=== PATIENT | male | born 1975 | race Caucasian/White ===

== ENCOUNTER 2025-07-22 06:48 | Observation (INO) ==
--- NOTE | 2025-07-22 07:26 | Emergency Department Note ---
History of Present Illness General Chief complaint: Nausea Stated complaint: NAUSEA,DIZZY,VOMITING Time Seen by Provider: 07/22/25 06:57 History of Present Illness Maximum Pain Intensity: 2 This is a 49-year-old male that presents to the emergency department via private vehicle with complaints of "epigastric abdominal pain, nausea, dizzy, vomiting". The patient states that since June 27, 2025 he has been feeling unwell/ill. He notes that he did see PCP and was started on antibiotic (first dose 6 AM on July 06) but this made him feel quite anxious and discontinued the medicine on July 11. Patient notes he was seen at an urgent care and started on 2 different antibiotics to include clarithromycin, amoxicillin as well as Carafate. He notes the Carafate nearly immediately alleviates his symptoms. However last evening began with nausea, vomiting and continuing to feel unwell. He does note a CT scan was performed of the abdomen/pelvis in the recent past which was overall negative. This was without contrast and a little over 2 weeks ago. Home Medications Medication Instructions Recorded Confirmed Type amoxicillin 500 mg capsule 1,000 mg PO BID 07/22/25 07/22/25 History clarithromycin 500 mg tablet 500 mg PO BID 07/22/25 07/22/25 History fenofibrate micronized 200 mg 200 mg PO QAM 07/22/25 07/22/25 History capsule irbesartan 75 mg tablet 75 mg PO QAM 07/22/25 07/22/25 History lorazepam 0.5 mg tablet 0.5 mg PO TID PRN Anxiety 07/22/25 07/22/25 History metformin 500 mg tablet,extended 1,000 mg PO QAM 07/22/25 07/22/25 History release 24 hr pantoprazole 40 mg tablet,delayed 40 mg PO DAILY 07/22/25 07/22/25 History release rosuvastatin 20 mg tablet 20 mg PO QAM 07/22/25 07/22/25 History sucralfate 1 gram tablet 1 g PO QID 07/22/25 07/22/25 History Allergies Allergy/AdvReac Type Severity Reaction Status Date / Time No Known Allergies Allergy Verified 07/22/25 12:41 Past Med/Surg History Problem List (Updated 07/22/25 @ 22:36 by Jose F Webb PA-C) Nausea (Acute) Abdominal pain (Acute) Tobacco use disorder Anxiety Dyslipidemia Diabetes mellitus type 2, controlled Hypertension Social History Smoking Status: Current every day smoker Tobacco Type: Cigarettes Cigarettes Per Day: 1 pack; Second Hand Exposure: No; Do You Dip or Chew Tobacco: No; Hx Alcohol Use: No Hx Substance Use: No Preferred Language: Beninese Communication Ability: Effective Society Reporter Required: No Beliefs That Will Affect Care: None Current Living Situation: Spouse and Family Feels Safe at Home: Yes Review of Systems A total of 10 systems reviewed and were otherwise negative Physical Exam Vital Signs Vital Signs - 24 hr 07/22/25 06:53 07/22/25 07:31 07/22/25 07:31 Temperature 36.4 C L Temperature Source Temporal Artery Scan Pulse Rate 89 75 Pulse Rate [Apical] 86 Pulse Rhythm Regular Pulse Rhythm [Apical] Regular Pulse Strength [Apical] Normal Respiratory Rate 18 12 14 Respiratory Effort / Characteristics Non-Labored Spontaneous Non-Labored Spontaneous Respiratory Depth Normal Normal Respiratory Pattern Regular Blood Pressure 139/94 Blood Pressure [Right Arm] 126/76 Blood Pressure Mean 109 Blood Pressure Mean [Right Arm] 92 Pulse Oximetry 96 94 96 Oxygen Delivery Method Room Air Room Air Room Air Sepsis Recent Fever Within 48 Hours No Sepsis New/Unexplained Change in Mental Status No Sepsis Action Taken by Nursing No Action Required 07/22/25 08:00 07/22/25 08:15 07/22/25 09:00 Temperature Temperature Source Pulse Rate 71 77 73 Pulse Rate [Apical] Pulse Rhythm Pulse Rhythm [Apical] Pulse Strength [Apical] Respiratory Rate 13 18 Respiratory Effort / Characteristics Respiratory Depth Respiratory Pattern Blood Pressure 130/80 140/86 Blood Pressure [Right Arm] Blood Pressure Mean 91 103 Blood Pressure Mean [Right Arm] Pulse Oximetry 94 94 Oxygen Delivery Method Room Air Room Air Sepsis Recent Fever Within 48 Hours Sepsis New/Unexplained Change in Mental Status Sepsis Action Taken by Nursing 07/22/25 10:00 07/22/25 10:00 07/22/25 11:00 Temperature Temperature Source Pulse Rate 72 76 73 Pulse Rate [Apical] Pulse Rhythm Pulse Rhythm [Apical] Pulse Strength [Apical] Respiratory Rate 21 24 18 Respiratory Effort / Characteristics Respiratory Depth Respiratory Pattern Blood Pressure 120/93 120/93 131/83 Blood Pressure [Right Arm] Blood Pressure Mean 98 98 98 Blood Pressure Mean [Right Arm] Pulse Oximetry 94 94 94 Oxygen Delivery Method Room Air Room Air Sepsis Recent Fever Within 48 Hours Sepsis New/Unexplained Change in Mental Status Sepsis Action Taken by Nursing VITAL SIGNS - Vital signs and nursing notes were reviewed. Stable and afebrile. GENERAL -49-year-old male appearing his stated age who is in no acute distress. Communicates well with provider and answers questions appropriately. SKIN - Without rashes. No meningeal or petechial rash. HEAD - NC/AT. EYES - PERRL with EOMI bilaterally. Sclera anicteric. EARS - No deformities of external structures noted on gross examination bilaterally. NOSE - Midline and without cyanosis. No epistaxis or purulent drainage noted. MOUTH/OROPHARYNX - Without perioral cyanosis. NECK - Neck with FROM. No nuchal rigidity. LUNGS - CTA CARDIAC - RRR ABDOMEN - Abdominal contour normal without pulsations or visible masses. BS normoactive all four quadrants. No tenderness, palpable masses, hepatosplenomegaly, or ascites noted. EXTREMITIES - No clubbing or peripheral cyanosis. +5/5 strength noted in UE/LE bilaterally. NEUROLOGIC - Cranial nerves II through XII grossly intact. PSYCH -alert, oriented and pleasant on exam. Course Administered Medications Amoxicillin (Amoxicillin 500 Mg Cap) 1,000 mg PO BID [facility]; Protocol Stop: 08/01/25 14:49 Last Admin: 07/22/25 16:25 Dose: 1,000 mg Documented By: MEERA Clarithromycin (Clarithromycin 500 Mg Tab) 500 mg PO BID SUSANA; Protocol Stop: 08/01/25 14:49 Last Admin: 07/22/25 16:25 Dose: 500 mg Documented By: MEERA Insulin Aspart (Insulin Aspart Per Unit Charge) 0 units SC ACHS [facility] Stop: 08/21/25 16:29 Last Admin: 07/22/25 20:35 Dose: Not Given Documented By: Admin: 07/22/25 17:38 Dose: Not Given Documented By: MEERA Nicotine (Nicotine 21 Mg/24 Hr Tdsy) 1 patch TD QAM [facility] Stop: 08/21/25 09:44 Last Admin: 07/22/25 10:08 Dose: 1 patch Documented By: CARRINGTON Pantoprazole Sodium (Pantoprazole 40 Mg Tab) 40 mg PO BID [facility] Stop: 08/21/25 20:59 Last Admin: 07/22/25 20:47 Dose: 40 mg Documented By: CHAUNCEY Sucralfate (Sucralfate 1 Gm/10 Ml Udc) 1 gm PO QID SUSANA Stop: 08/21/25 12:59 Last Admin: 07/22/25 20:47 Dose: 1 gm Documented By: Admin: 07/22/25 17:39 Dose: 1 gm Documented By: Admin: 07/22/25 13:45 Dose: 1 gm Documented By: RICKYD Discontinued Medications Sodium Chloride (Nss) 500 mls @ 500 mls/hr IV .Q1H ONE Stop: 07/22/25 08:12 Last Infusion: 07/22/25 10:08 Dose: Infused Documented By: Admin: 07/22/25 07:32 Dose: 500 mls/hr Documented By: CARRINGTON Famotidine (Pepcid 20mg Iv Push) 20 mg in 5 mls @ 2.5 mls/min IV NOW STA Stop: 07/22/25 07:14 Last Admin: 07/22/25 07:32 Dose: 2.5 mls/min Documented By: CARRINGTON Ioversol (Optiray 320 100ml) 94 ml IV ONCE ONE Stop: 07/22/25 08:40 Last Admin: 07/22/25 08:39 Dose: 94 ml Documented By: MEERA(2) Ondansetron HCl (Ondansetron Inj 2 Mg/Ml 2 Ml Vial) 4 mg IV NOW STA Stop: 07/22/25 07:14 Last Admin: 07/22/25 07:33 Dose: 4 mg Documented By: CARRINGTON Medical Decision Making Laboratory Data 07/22/25 07:30 07/22/25 07:30 Lab Results 07/22/25 07/22/25 Range/Units 07:30 08:15 WBC 11.78 H (4.8-10.8) K/ul RBC 5.24 (4.70-6.10) M/uL Hgb 16.4 (14.0-18.0) g/dL Hct 46.5 (42.0-52.0) % MCV 88.7 (80.0-100.0) fL MCH 31.3 (25.0-34.0) pg MCHC 35.3 (32.0-36.0) g/dL RDW Std Deviation 41.1 (36.4-46.3) fL RDW Coeff of Peyman 12.7 (11.5-14.5) % Plt Count 332 (130-400) K/uL MPV 11.0 (9.4-12.4) fL Immature Gran % (Auto) 0.4 % Neut % (Auto) 75.2 % Lymph % (Auto) 17.0 % [place] % (Auto) 5.3 % Eos % (Auto) 1.2 % Baso % (Auto) 0.9 % Neut # (Auto) 8.85 H (1.40-6.50) K/uL Lymph # (Auto) 2.00 (1.20-3.40) K/uL [place] # (Auto) 0.63 H (0.11-0.59) K/uL Eos # (Auto) 0.14 (0.00-0.50) K/uL Baso # (Auto) 0.11 (0.00-0.20) K/uL Immature Gran # (Auto) 0.05 (0.01-0.20) K/uL PT 11.2 (9.0-12.0) Seconds INR 1.1 (0.9-1.1) APTT 26 (21-31) Seconds PTT Ratio 1.0 Sodium 138 (136-145) mmol/L Potassium 3.9 (3.5-5.1) mmol/L Chloride 108 H (98-107) mmol/L Carbon Dioxide 22 (21-32) mmol/L Anion Gap 8 (3-11) BUN 21 (6-23) mg/dl Creatinine 0.83 (0.6-1.4) mg/dl Est Cr Clr Drug Dosing 122.0 ml/min eGFR 106.62 BUN/Creatinine Ratio 25.3 H (10-20) Glucose 106 H (70-99(Fasting)) mg/dl Lactate 2.0 (0.4-2.0) mmol/L Calcium 9.7 (8.6-10.3) mg/dl Magnesium 1.9 (1.7-2.4) mg/dl Total Bilirubin 0.7 (0.2-1.0) mg/dl AST 14 (13-39) U/L ALT 29 (7-52) U/L Alkaline Phosphatase 43 (34-104) U/L Troponin I High Sens 2.5 (0-20) pg/ml Total Protein 7.2 (6.0-8.3) gm/dl Albumin 4.5 (3.4-5.0) gm/dl Globulin 2.7 (2.5-4.0) gm/dl Albumin/Globulin Ratio 1.7 (0.9-2) Lipase 7 L (11-82) U/L Procalcitonin < 0.02 (0-0.5) ng/ml Urine Color Yellow Urine Appearance Clear (Clear) Urine pH 6.0 (4.5-7.5) Ur Specific [place] 1.012 (1.000-1.030) Urine Protein Negative (Negative) Urine Glucose (UA) Negative (Negative) Urine Ketones Negative (Negative) Urine Blood Negative (Negative) Urine Nitrite Negative (Negative) Urine Bilirubin Negative (Negative) Urine Urobilinogen Negative (Negative) Ur Leukocyte Esterase Negative (Negative) Urine Comment Imaging Data Radiologist's Impression: ADDENDUM Addendum: Upon further review, note is made of 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 Electronically signed by: Luis Angel Frausto M.D. 07/22/2025 9:[address] SCAN OF THE ABDOMEN AND PELVIS WITH IV CONTRAST CLINICAL HISTORY: Mid abdominal pain. Nausea. COMPARISON STUDY: None. TECHNIQUE: Following the IV administration of 94 cc of Optiray 320, CT scan of the abdomen and pelvis is performed from the lung bases to the proximal femora. Images are reviewed in the axial, sagittal, and coronal planes. IV contrast was administered without complication. A dose lowering technique was utilized adhering to the principles of ALARA. CT DOSE: 1389.19 mGy.cm FINDINGS: Visualized lung bases are unremarkable. There is no pneumatosis, free air or portal venous gas. There are no hepatic lesions. There is no biliary or pancreatic ductal dilatation. Spleen, adrenal glands, kidneys and pancreas are unremarkable. There is no hydronephrosis. The caliber and wall and large bowel are. The appendix is normal. There is no lymphadenopathy. Major vasculature is patent. 8 mm of anterolisthesis of L5 on S1 is due to bilateral L5 pars defects. IMPRESSION: 1. No acute process within the abdomen or pelvis. 2. Normal appendix. No bowel obstruction. No bowel wall thickening. ACT 112: Negative or not required by law. Electronically signed by: Luis Angel Frausto M.D. 07/22/2025 9:10 AM MDM Narrative Patient was seen and evaluated as above in room A11b. Review was performed of nursing notes and vital signs. No previous visits for review in the EMR at time of evaluation. After obtaining a thorough history and physical examination the above work up was performed. Patient presents with the above symptoms. He has a benign abdomen although as of late notes that he feels unwell, has nausea, and feels weak. He notes that Carafate does seem to help his symptoms some. Options of care were discussed with the patient. IV access was established. Labs were drawn. There is leukocytosis 11.78. No anemia. Coags normal. No evidence of kidney or liver failure. Troponin within normal range making ACS less likely. Lipase normal. Procalcitonin undetectable. Urinalysis does not suggest infection. BioFire panel returned negative. An EKG performed reveals normal sinus rhythm at a rate of 83 bpm. QTc 411. QRS 86. No ST elevation on this rhythm tracing. A CT scan was performed of the abdomen/pelvis and is as above. 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 This addendum finding is not felt to be contributory to the patient's presentation today. The patient has been placed on several outpatient medicines and despite this continues with worsening symptoms. I discussed options with the patient. Ultimately decision was made to proceed with further evaluation and management in the inpatient setting. It is felt that further evaluation and management inpatient setting is warranted. Case discussed with the hospitalist service. Please refer to further mentation regarding his stay. GCS: 15 In the evaluation and treatment of this patient the following differential diagnoses were entertained: Pancreatitis, Bowel obstruction, ascending cholangitis, gastritis, esophagitis, ACS, among others Impression & Plan Abdominal pain, Nausea Discharge Plan Visit Data Chief Complaint: Nausea Stated Complaint: NAUSEA,DIZZY,VOMITING ED Provider: Yobani Samaniego ED Midlevel Provider: Jose F Webb Discharge Problem: Abdominal pain, Nausea Patient Disposition: Admitted As Inpatient Condition: Good Discharge Instructions Interventions: ED Discharge Assessment Last Done: 07/22/25 12:36 Discharge Problem: Abdominal pain Qualifiers: Abdominal location: epigastric Qualified Code(s): R10.13 - Epigastric pain
[2025-07-22] MEDS: SODIUM CHLORIDE 0.9% 500 ML IV ONE (07:32)
[2025-07-22] MEDS: FAMOTIDINE 20MG IV PUSH 20 MG/5 ML SYR IV STA (07:32)
[2025-07-22] MEDS: ONDANSETRON INJ 2 MG/ML 2 ML VIAL IV STA (07:33)
[2025-07-22 07:51] LABS: Hematocrit (blood only) 46.5 % (42.0-52.0); Hemoglobin 16.4 g/dL (14.0-18.0); Immature Granulocytes # (auto) 0.05 K/uL (0.01-0.20); Immature Granulocytes % (auto) 0.4 %; Mean Corpuscular Hemoglobin 31.3 pg (25.0-34.0); Mean Corpuscular Volume 88.7 fL (80.0-100.0); Platelet Count 332 K/uL (130-400); RDW Standard Deviation 41.1 fL (36.4-46.3); Red Blood Count 5.24 M/uL (4.70-6.10); White Blood Count 11.78 K/ul (4.8-10.8)
[2025-07-22 08:11] LABS: Alanine Aminotransferase 29.0 U/L (7-52); Albumin Globulin Ratio 1.7 (0.9-2); Albumin Level 4.5 gm/dl (3.4-5.0); Alkaline Phosphatase 43.0 U/L (34-104); Anion Gap 8.0 (3-11); Bilirubin,Total 0.7 mg/dl (0.2-1.0); Blood Urea Nitrogen 21.0 mg/dl (6-23); Calcium 9.7 mg/dl (8.6-10.3); Carbon Dioxide 22.0 mmol/L (21-32); Chloride 108.0 mmol/L (98-107); Creatinine Clr Calc Pharmacy 122.0 ml/min; Globulin 2.7 gm/dl (2.5-4.0); Glucose 106.0 mg/dl (70-99(Fasting)); Lipase 7.0 U/L (11-82); Magnesium 1.9 mg/dl (1.7-2.4); Potassium 3.9 mmol/L (3.5-5.1); Sodium 138.0 mmol/L (136-145); Total Protein 7.2 gm/dl (6.0-8.3)
[2025-07-22 08:23] LABS: INR 1.1 (0.9-1.1); Partial Thromboplastin Time 26 Seconds (21-31); Prothrombin Time 11.2 Seconds (9.0-12.0)
[2025-07-22] MEDS: OPTIRAY 320 100ml IV ONE (08:39)
[2025-07-22 08:52] LABS: Appearance Urine Clear (Clear); Glucose Urine UA Negative (Negative)
--- NOTE | 2025-07-22 09:12 | CT Scan Report ---
CT SCAN OF THE ABDOMEN AND PELVIS WITH IV CONTRAST CLINICAL HISTORY: Mid abdominal pain. Nausea. COMPARISON STUDY: None. TECHNIQUE: Following the IV administration of 94 cc of Optiray 320, CT scan of the abdomen and pelvi s is performed from the lung bases to the proximal femora. Images are reviewed in the axial, sagittal , and coronal planes. IV contrast was administered without complication. A dose lowering technique wa s utilized adhering to the principles of ALARA. CT DOSE: 1389.19 mGy.cm FINDINGS: Visualized lung bases are unremarkable. There is no pneumatosis, free air or portal venous gas. There are no hepatic lesions. There is no biliary or pancreatic ductal dilatation. Spleen, adren al glands, kidneys and pancreas are unremarkable. There is no hydronephrosis. The caliber and wall an d large bowel are. The appendix is normal. There is no lymphadenopathy. Major vasculature is patent. 8 mm of anterolisthesis of L5 on S1 is due to bilateral L5 pars defects. IMPRESSION: 1. No acute process within the abdomen or pelvis. 2. Normal appendix. No bowel obstruction. No bowel wall thickening. ACT 112: Negative or not required by law. Electronically signed by: Luis Angel Frausto M.D. 07/22/2025 9:10 AM
[2025-07-22] MEDS: NICOTINE 21 MG/24 HR TDSY TD SCH (10:08)
--- NOTE | 2025-07-22 12:14 | History & Physical Report ---
Date of Service July 22, 2025 Assessment & Plan (1) Abdominal pain: (2) Hypertension: (3) Diabetes mellitus type 2, controlled: (4) Dyslipidemia: (5) Tobacco use disorder: (6) Anxiety: Plan Patient is a 49 year old M with a past medical history of hypertension, diabetes mellitus type II, dyslipidemia, anxiety, tobacco use disorder presenting with abdominal pain, dyspepsia, dry heaving. Symptoms began 06/2025 with intermittent abdominal pain, decreased appetite, and "hot" feelings" without measurable fever x 7 days and was started on Cipro by PCP on 07/06. Patient experienced increased anxiety symptoms with Cipro and was prescribed Ativan by outpatient provider. Symptoms did not improve. On 07/11, he went [facility], stopped Cipro and was started on Carafate. Symptoms did not improve off antibiotics, so he then went back to PCP and , and was prescribed Amoxicillin, Clarithromycin, PPI and Carafate for suspected H Pylori infection. Overnight, he experienced worsening dyspepsia and dry heaving. Feels abdominal pain is mostly central, around umbilicus, but also reporting burning sensation to epigastric area not associated with food intake. 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, measuring 1.1 cm * GI consult ordered and pending * Has been on PPI and Carafate outpatient-> will increase treatment regimen to Pantiprazole BID with Carafate QID management * Clear diet pending GI consult; poss NPO status * US liver and gallbladder ordered and pending #Hypertension * BP stable; continue home irbesartan and trend #Diabetes Mellitus Type II * Controlled with A1C 5.9% (02/2025) per outpatient records * Hold home metformin * SSI while inpatient with goal BSG 110-140; adjust as needed #Dyslipidemia * Per outpatient record, patient stopped cholesterol medication when sucralfate was added for concerns of drug interactions; patient reports taking statin currently * Suspect possible nonadherence to OP routine; Will check lipids in the morning * Continue home statin #Tobacco Use Disorder * Heavy tobacco user ~ smokes 1 pack/day * Nicotine patch ordered * discussed gastritis and reflux symptoms with chronic tobacco use; agreeable to nicotine patch while inpatient; will need smoking cessation info at discharge; suspect anxiety management with tobacco #Anxiety * Hold home ativan for now; no anxiety while in ED * Sleep issues when anxious; melatonin ordered for sleep as needed; may need ativan prn dose for inpatient admit DVT Ppx: SCDs Code status: Full PCP: Dr Hidalgo Dispo: Admit for observation; will need GI consult Patient seen in collaboration with Dr. Noble. Please see addendum.I spent a total of 60 minutes coordinating, documenting and providing care for this patient excluding time spent in the performance of separately billed services or time spent by another provider/QHP. History of Present Illness Primary Care Provider: Tessa Rojas MD Patient is a 49 year old M with a past medical history of hypertension, diabetes mellitus type II, dyslipidemia, anxiety, tobacco use disorder presenting with abdominal pain, dyspepsia, dry heaving. Symptoms began 06/2025 with intermittent abdominal pain, decreased appetite, and "hot" feelings" without measurable fever x 7 days and was started on Cipro by PCP on 07/06. Patient experienced increased anxiety symptoms with Cipro and was prescribed Ativan by outpatient provider. Symptoms did not improve. On 07/11, he went [facility], stopped Cipro and was started on Carafate. Symptoms did not improve off antibiotics, so he then went back to PCP and , and was prescribed Amoxicillin, Clarithromycin, PPI and Carafate for suspected H Pylori infection. Overnight, he experienced worsening dyspepsia and dry heaving. Feels abdominal pain is mostly central, around umbilicus, but also reporting burning sensation to epigastric area not associated with food intake. Denies fever, chills, weight loss, cognitive changes, vision/hearing changes, chest pain, SOB, swelling, difficulty breathing, urinary concerns, joint swelling/pain, ambulation difficulty, skin rashes, lesions, bleeding, bruising. Discussed with ED provider history of present illness and radiology findings from CT abdomen/pelvis. Reason for admission to investigate abdominal symptoms d/t minimal clinical response to outpatient treatment regimen, and consultation. In the emergency department, patient was hemodynamically stable with no evidence of infection or sepsis. Lab workup unremarkable. Slightly increased WBC with a normal Procalcitonin. LFTs normal. RUQ pain on exam. 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 Treatment in the ED consisted of IV fluid replacement with 500 ml NSS and famotidine. History obtained primarily from the patient and via hospitalization record. External chart review obtained from [facility]. Allergies Allergy/AdvReac Type Severity Reaction Status Date / Time No Known Allergies Allergy Verified 07/22/25 12:41 Home Medications Medication Instructions Recorded Confirmed Type amoxicillin 500 mg capsule 1,000 mg PO BID 07/22/25 07/22/25 History clarithromycin 500 mg tablet 500 mg PO BID 07/22/25 07/22/25 History fenofibrate micronized 200 mg 200 mg PO QAM 07/22/25 07/22/25 History capsule irbesartan 75 mg tablet 75 mg PO QAM 07/22/25 07/22/25 History lorazepam 0.5 mg tablet 0.5 mg PO TID PRN Anxiety 07/22/25 07/22/25 History metformin 500 mg tablet,extended 1,000 mg PO QAM 07/22/25 07/22/25 History release 24 hr pantoprazole 40 mg tablet,delayed 40 mg PO DAILY 07/22/25 07/22/25 History release rosuvastatin 20 mg tablet 20 mg PO QAM 07/22/25 07/22/25 History sucralfate 1 gram tablet 1 g PO QID 07/22/25 07/22/25 History Past Med/Surg History Problem List (Updated 07/22/25 @ 14:45 by HUMAIRA Pope) Abdominal pain Tobacco use disorder Anxiety Dyslipidemia Diabetes mellitus type 2, controlled Hypertension Social History Smoking Status: Current every day smoker Preferred Language: Uzbek Feels Safe at Home: Yes Review of Systems Review of Systems: All systems reviewed & are unremarkable except as noted in HPI & below Physical Exam Physical Exam: VITALS: Reviewed. WEIGHT/BMI reviewed. GEN: Healthy appearing, well-developed, NAD. PSYCH: Good Judgment. AOx3. Normal memory, mood, and affect. HEENT -Head: NC/AT; -Eyes: PERRL, EOMI. No discharge or redn ess; -Ears: External ears are normal. -Nose: Normal nares. -Mouth and throat: MMM. Normal gums, muc adolfo, palate,. Good dentition. NECK: Supple, with no masses. CV: S1, S2 without murmurs or extra beats, regular rhythm, no bruits, no swelling LUNGS: CTAB, no w/r/c. ABD: Soft, mildly distended, tender to RUQ, active bowel sounds, +belching on exam : N/A SKIN: Warm, well perfused. No skin rashes or abnormal lesions. MSK: No deformities, Normal gait. EXT: No clubbing, cyanosis, or edema. NEURO: Ambulating with no limitations. Normal muscle strength and tone. No focal deficits. Results & Data Results & Data Vital Signs (Past 12 Hours) Vital Signs Temp Pulse Pulse Resp BP BP Pulse Ox 07/22/25 10:00 72 21 120/93 94 07/22/25 09:00 73 18 140/86 94 07/22/25 08:15 77 07/22/25 08:00 71 13 130/80 94 07/22/25 07:31 75 14 96 07/22/25 07:31 86 12 126/76 94 07/22/25 06:53 36.4 C L 89 18 139/94 96 O2 Del Method 07/22/25 10:00 Room Air 07/22/25 09:00 Room Air 07/22/25 08:15 07/22/25 08:00 Room Air 07/22/25 07:31 Room Air 07/22/25 07:31 Room Air 07/22/25 06:53 Room Air Laboratory Results Short CBC 07/22/25 Range/Units 07:30 WBC 11.78 H (4.8-10.8) K/ul Hgb 16.4 (14.0-18.0) g/dL Hct 46.5 (42.0-52.0) % Plt Count 332 (130-400) K/uL BMP 07/22/25 07:30 Sodium 138 Potassium 3.9 Chloride 108 H Carbon Dioxide 22 BUN 21 Creatinine 0.83 Glucose 106 H Calcium 9.7 Liver Function 07/22/25 Range/Units 07:30 Total Bilirubin 0.7 (0.2-1.0) mg/dl AST 14 (13-39) U/L ALT 29 (7-52) U/L Alkaline Phosphatase 43 (34-104) U/L Albumin 4.5 (3.4-5.0) gm/dl Urine 07/22/25 Range/Units 08:15 Urine Color Yellow Urine Appearance Clear (Clear) Urine pH 6.0 (4.5-7.5) Ur Specific [place] 1.012 (1.000-1.030) Urine Protein Negative (Negative) Urine Glucose (UA) Negative (Negative) Diagnostic Findings Abdomen/Pelvis CT 07/22/25 07:13 CT SCAN OF THE ABDOMEN AND PELVIS WITH IV CONTRAST CLINICAL HISTORY: Mid abdominal pain. Nausea. COMPARISON STUDY: None. TECHNIQUE: Following the IV administration of 94 cc of Optiray 320, CT scan of the abdomen and pelvis is performed from the lung bases to the proximal femora. Images are reviewed in the axial, sagittal, and coronal planes. IV contrast was administered without complication. A dose lowering technique was utilized adhering to the principles of ALARA. CT DOSE: 1389.19 mGy.cm FINDINGS: Visualized lung bases are unremarkable. There is no pneumatosis, free air or portal venous gas. There are no hepatic lesions. There is no biliary or pancreatic ductal dilatation. Spleen, adrenal glands, kidneys and pancreas are unremarkable. There is no hydronephrosis. The caliber and wall and large bowel are. The appendix is normal. There is no lymphadenopathy. Major vasculature is patent. 8 mm of anterolisthesis of L5 on S1 is due to bilateral L5 pars defects. IMPRESSION: 1. No acute process within the abdomen or pelvis. 2. Normal appendix. No bowel obstruction. No bowel wall thickening. ACT 112: Negative or not required by law. Electronically signed by: Luis Angel Frausto M.D. 07/22/2025 9:10 AM Code Status & VTE Plan VTE Prophylaxis Plan VTE Prophylaxis will be ordered: Yes Supervising Physician Co-Signing Physician Notes 49-year-old gentleman with PMH of HTN, T2DM, HLD, anxiety, tobacco use disorder [currently smokes 1 packs a day] presents with abdominal pain/burning sensation/discomfort along the central upper to mid region. Patient reports feeling bloated and not feeling hungry, reports nausea and reflux intermittently, had vomiting x 2 since last evening. Patient does report he gets some improvement with Carafate. He reports that he has been taking his H. pylori therapy [clarithromycin, amoxicillin, PPI, Carafate] for 7 days now but did not take today morning dose as he was coming to the hospital. Patient denies febrile illness/sore throat/chest pain. Patient also reports right upper quadrant pain and discomfort intermittently. Labs reviewed, fairly WNL. CTAP with no acute findings, concern for Common hepatic artery fusiform dilatation around 1.1 cm. GI consult, acid peptic disease not improving as expected, likely need a scope. Vascular surgery consult given right-sided belly pain and incidental finding of hepatic artery fusiform dilatation. Patient made aware of this finding and advised to follow-up with PCP/vascular surgery as an outpatient for long-term monitoring. Will get US liver and gallbladder. On exam: Room air, no BLE edema, heart/lung examination fairly WNL, periumbilical and epigastric mild tenderness noted. Rest of the examination as above. Total time spent independently: 24 minutes I have seen and examined the patient and have discussed the case with the provider above. I agree with the assessment and plan as stated.
[2025-07-22] MEDS ORDERED: DEXTROSE 50% 50 ML SYRINGE IV PRN (12:22)
[2025-07-22] MEDS ORDERED: GLUCOSE 40% GEL 15 GM TUBE PO PRN (12:22)
[2025-07-22] MEDS ORDERED: GLUCOSE 10 TAB/TUBE PO PRN (12:22)
[2025-07-22] MEDS ORDERED: CARBOHYDRATES FOR HYPOGLYCEMIA PO PRN (12:22)
[2025-07-22] MEDS ORDERED: GLUCAGON FOR INJ 1 MG VIAL SQ PRN (12:22)
[2025-07-22] MEDS ORDERED: ACETAMINOPHEN 325 MG TAB PO PRN (12:36)
[2025-07-22] MEDS ORDERED: ALUMINUM/MAGNESIUM SUSP 30 ML UDC PO PRN (12:36)
[2025-07-22] MEDS: SUCRALFATE 1 GM/10 ML UDC PO SCH (13:45)
--- NOTE | 2025-07-22 13:49 | Gastrointestinal Consultation ---
Date of Consultation July 22, 2025 Assessment & Plan (1) Abdominal pain: Unclear etiology. Non-toxic appearing patient with intermittent symptoms. Notes coworker with similar symptoms. LFTs normal. Mild elevation of WBC count. Primary team ordered RUQ US. Protonix 40 mg BID. Stool PCR. Seems most appropriate for outpatient work-up with EGD at this time. Would not continue H pylori treatment when he has not been formally diagnosed with this. Will discuss with attending payroll services analyst. Refer to attending physician statement for any further changes/additions to the plan of care. Supervising Physician Co-Signing Physician Notes I personally saw and examined the patient. I have reviewed the chart and agree with the documentation provided by the COATING TECHNICIAN including discussion about the assessment, treatment and plan. Briefly, 49 yo male with unclear story regarding ongoing abdominal discomfort. He notes bloating that began in June and saw his PCP. He notes he was given Cipro after a CT scan did not yield find ings. He stopped this med because he couldn't tolerate the side effects. He then saw urgent care. He was given Carafate. He was then seen by another primary care provider and reportedly he has no formal diagnosis of H pylori despite H pylori treatment with Clarithromycin and Amoxicillin. He was taking Protonix as well. He presented to the ED due to persistence of his symptoms of intermittent abdom inal pain, decreased appetite and "feeling hot." His symptoms are most consistent with H. pylori treatment. Unfortunately, he was never officially diagnosed with H. pylori so we do not know what we are treating. I do suspect he has some gastritis. At this point I would just stop all antibiotics continue PPI and supportive care he can be a 23-hour admission and advance his diet slowly. He should follow-up outpatient with GI to get an EGD to make sure he does not have H. pylori and he does not have gastritis. GI has no further recommendations we will sign off please call us back with [employer]. History of Present Illness Reason for Consultation: "Ongoing Gastritis, on HPyloir tx, cholecystitis" Attending Physician: Margaret Noble MD History of Present Illness Patient is a 49 yo male with unclear story regarding ongoing abdominal discomfort. He notes bloating that began in June and saw his PCP. He notes he was given Cipro after a CT scan did not yield findings. He stopped this med because he couldn't tolerate the side effects. He then saw urgent care. He was given Carafate. He was then seen by another primary care provider and reportedly he has no formal diagnosis of H pylori despite H pylori treatment with Clarithromycin and Amoxicillin. He was taking Protonix as well. He presented to the ED due to persistence of his symptoms of intermittent abdominal pain, decreased appetite and "feeling hot." No fevers. Pain not associated with food intake. In the ED, CT without acute GI abnormalities. LFTs normal. Normal BUN/Cr. Procalcitonin normal. No biliary concerns on CT scan here today. WBC count 11,780. Lipase normal. Troponin normal. He notes a coworker has been coming to work with the same symptoms. Allergies Allergy/AdvReac Type Severity Reaction Status Date / Time No Known Allergies Allergy Verified 07/22/25 12:41 Home Medications Medication Instructions Recorded Confirmed Type amoxicillin 500 mg capsule 1,000 mg PO BID 07/22/25 07/22/25 History clarithromycin 500 mg tablet 500 mg PO BID 07/22/25 07/22/25 History fenofibrate micronized 200 mg 200 mg PO QAM 07/22/25 07/22/25 History capsule irbesartan 75 mg tablet 75 mg PO QAM 07/22/25 07/22/25 History lorazepam 0.5 mg tablet 0.5 mg PO TID PRN Anxiety 07/22/25 07/22/25 History metformin 500 mg tablet,extended 1,000 mg PO QAM 07/22/25 07/22/25 History release 24 hr pantoprazole 40 mg tablet,delayed 40 mg PO DAILY 07/22/25 07/22/25 History release rosuvastatin 20 mg tablet 20 mg PO QAM 07/22/25 07/22/25 History sucralfate 1 gram tablet 1 g PO QID 07/22/25 07/22/25 History Patient History Social History Smoking Status: Current every day smoker Tobacco Type: Cigarettes Cigarettes Per Day: 1 pack; Second Hand Exposure: No; Do You Dip or Chew Tobacco: No; Tobacco Cessation Education Requested by Patient: No Hx Alcohol Use: No Hx Substance Use: No Preferred Language: Citizen Of [place] Communication Ability: Effective Systems Mechanic Required: No Beliefs That Will Affect Care: None Current Living Situation: Spouse and Family Feels Safe at Home: Yes Safety Concerns: Feels Safe At This Time Review of Systems Constitutional: feeling "hot" Gastrointestinal: + abdominal pain; no nausea, no vomiting , no coffee ground emesis, no hematemesis, no diarrhea/loose stools, no blood in stools and no melena Physical Exam Constitutional: well developed Respiratory: normal respiratory effort Cardiovascular: Rate/Rhythm: regular rate Gastrointestinal (Abdomen): normal bowel sounds, soft, nontender, no hepa tosplenomegaly Results & Data Vital Signs (Past 12 Hours) Vital Signs Temp Pulse Pulse Resp BP BP Pulse Ox 07/22/25 13:41 76 18 146/85 H 07/22/25 13:00 87 16 138/92 92 07/22/25 12:17 76 07/22/25 12:00 83 14 139/87 93 07/22/25 11:00 73 18 131/83 94 07/22/25 10:00 76 24 120/93 94 07/22/25 10:00 72 21 120/93 94 07/22/25 09:00 73 18 140/86 94 07/22/25 08:15 77 07/22/25 08:00 71 13 130/80 94 07/22/25 07:31 75 14 96 07/22/25 07:31 86 12 126/76 94 07/22/25 06:53 36.4 C L 89 18 139/94 96 O2 Del Method 07/22/25 13:41 07/22/25 13:00 07/22/25 12:17 07/22/25 12:00 Room Air 07/22/25 11:00 07/22/25 10:00 Room Air 07/22/25 10:00 Room Air 07/22/25 09:00 Room Air 07/22/25 08:15 07/22/25 08:00 Room Air 07/22/25 07:31 Room Air 07/22/25 07:31 Room Air 07/22/25 06:53 Room Air PG Care Time/CCT Total # of Minutes Spent Total Time Spent with Patient: Total time spent is greater than 50% in coordination of care (as documented) at patient's floor/unit and/or counseling patient: Coding Level of Care Code 00327 IN/OBS CONSULT LVL 4,60M Diagnoses Abdominal pain R10.9
[2025-07-22] MEDS: AMOXICILLIN 500 MG CAP PO SCH (16:25)
[2025-07-22] MEDS: CLARITHROMYCIN 500 MG TAB PO SCH (16:25)
[2025-07-22] MEDS: INSULIN ASPART PER UNIT CHARGE SC SCH (17:38)
[2025-07-22 19:04] LABS: Adenovirus F 40/41 PCR Not Detected (NotDetected); Campylobacter PCR Not Detected (NotDetected); Enteroaggregative E.coli(EAEC) Not Detected (NotDetected); Shiga-like Toxin E.coli (STEC) Not Detected (NotDetected); Vibrio species PCR Not Detected (NotDetected)
[2025-07-22] MEDS ORDERED: AMOXICILLIN 500 MG CAP PO SCH (21:00)
[2025-07-22] MEDS ORDERED: CLARITHROMYCIN 500 MG TAB PO SCH (21:00)
--- NOTE | 2025-07-23 03:14 | Ultrasound Report ---
Exam(s): US GALLBLADDER EXAM: US Abdomen Limited, Right Upper Quadrant CLINICAL HISTORY: RUQ pain. TECHNIQUE: Real-time ultrasound of the right upper quadrant with image documentation. COMPARISON: CT abdomen 07/22/2025. FINDINGS: Liver: 17.3 cm in length. Mildly echogenic/fatty. 1.3 x 0.5 x 0.5 mm slightly ill-defined echogenic lesion in the anterior aspect of the right lobe of the liver. No intrahepatic bile duct dilation. Hepatopetal flow in the main portal vein. Gallbladder: Probable slight gallbladder sludge. No gallstones, wall thickening or sonographic Calderon's sign. Common bile duct: 4 mm. No stones. No dilation. Pancreas: Unremarkable as visualized. Right kidney: Unremarkable. No stones. No solid mass. No hydronephrosis. IMPRESSION: Small amount of gallbladder sludge. No evidence for acute cholecystitis or biliary obstruction. Mild fatty infiltration of the liver. Small echogenic lesion in the anterior aspect of the right lobe of the liver, not visualized on CT. Considerations a small hemangioma or vascular lesion. Otherwise negative. Electronically signed by: James Tracey M.D. 07/23/25 03:13 AM
[2025-07-23] MEDS: ONDANSETRON INJ 2 MG/ML 2 ML VIAL IV PRN (06:38)
[2025-07-23 06:56] LABS: Hematocrit (blood only) 46.9 % (42.0-52.0); Hemoglobin 15.9 g/dL (14.0-18.0); Mean Corpuscular Hemoglobin 30.5 pg (25.0-34.0); Mean Corpuscular Volume 90.0 fL (80.0-100.0); Platelet Count 319 K/uL (130-400); RDW Standard Deviation 41.3 fL (36.4-46.3); Red Blood Count 5.21 M/uL (4.70-6.10); White Blood Count 9.70 K/ul (4.8-10.8)
[2025-07-23 07:23] VITALS: BP 120/76; PULSE 64; RESP 18; TEMP 97; O2SAT 97
[2025-07-23 07:33] LABS: Anion Gap 9.0 (3-11); Blood Urea Nitrogen 14.0 mg/dl (6-23); Calcium 9.4 mg/dl (8.6-10.3); Carbon Dioxide 23.0 mmol/L (21-32); Chloride 106.0 mmol/L (98-107); Cholesterol 99.0 mg/dl (0-200); Creatinine Clr Calc Pharmacy 131.6 ml/min; Glucose 95.0 mg/dl (70-99(Fasting)); HDL Cholesterol 23.0 mg/dl; Potassium 4.0 mmol/L (3.5-5.1); Sodium 138.0 mmol/L (136-145); Triglycerides 187.0 mg/dl (0-150)
--- NOTE | 2025-07-23 08:12 | Electrocardiogram Report ---
Test Reason : Blood Pressure : */* mmHG Vent. Rate : 83 BPM Atrial Rate : 83 BPM P-R Int : 144 ms QRS Dur : 86 ms QT Int : 350 ms P-R-T Axes : 27 117 0 degrees QTcB Int : 411 ms Normal sinus rhythm Right axis deviation Consider Right ventricular hypertrophy Abnormal ECG No previous ECGs available Confirmed by Asim Hernandez ([id number]) on 07/23/2025 8:12:48 AM Referred By: REFERRED SELF Confirmed By: Asim Hernandez
--- NOTE | 2025-07-23 08:22 | Vascular Surgery Consultation ---
Date of Consultation July 23, 2025 Assessment & Plan (1) Abdominal pain: Incidental finding of dilation of common hepatic artery. I do not believe this is related to his abdominal pain and it does not require any intervention or further evaluation from my perspective. Abdominal location: epigastric Qualified Code(s): R10.13 - Epigastric pain History of Present Illness Attending Physician: Darren Balbuena MD History of Present Illness Asked to evaluate this 49yo male with one month of abdominal pain and CT finding of mild dilation of common hepatic artery seen on CT scan. Pain begain about a month ago and was rather sudden in onset with associated nausea. Pain migrates throughout the abdomen - RUQ, LUQ and occasionally in the lower quadrants. Has an uncle with what sounds like an abdominal aortic aneurysm (he pointed to the belly) but no further details. No other family history of aneurysms. Allergies Allergy/AdvReac Type Severity Reaction Status Date / Time No Known Allergies Allergy Verified 07/22/25 12:41 Home Medications Medication Instructions Recorded Confirmed Type amoxicillin 500 mg capsule 1,000 mg PO BID 07/22/25 07/22/25 History clarithromycin 500 mg tablet 500 mg PO BID 07/22/25 07/22/25 History fenofibrate micronized 200 mg 200 mg PO QAM 07/22/25 07/22/25 History capsule irbesartan 75 mg tablet 75 mg PO QAM 07/22/25 07/22/25 History lorazepam 0.5 mg tablet 0.5 mg PO TID PRN Anxiety 07/22/25 07/22/25 History metformin 500 mg tablet,extended 1,000 mg PO QAM 07/22/25 07/22/25 History release 24 hr pantoprazole 40 mg tablet,delayed 40 mg PO DAILY 07/22/25 07/22/25 History release rosuvastatin 20 mg tablet 20 mg PO QAM 07/22/25 07/22/25 History sucralfate 1 gram tablet 1 g PO QID 07/22/25 07/22/25 History Patient History Social History Smoking Status: Current every day smoker Tobacco Type: Cigarettes Cigarettes Per Day: 1 pack; Second Hand Exposure: No; Do You Dip or Chew Tobacco: No; Hx Alcohol Use: No Hx Substance Use: No Preferred Language: Azeri Communication Ability: Effective Receiving Checker Required: No Beliefs That Will Affect Care: None Current Living Situation: Spouse and Family Feels Safe at Home: Yes Physical Exam Physical Exam: Awake and alert. Would like to eat something more than liquids but also says he isn't hungry (and hasn't been since this started in June). Abdomen is soft with vague nonspecific tenderness in the right and left upper quadrants. No rebound or guarding. Palpable pulses in the feet bilaterally. Results & Data Vital Signs (Past 12 Hours) Vital Signs Temp Pulse Resp BP Pulse Ox O2 Del Method 07/23/25 07:20 36.1 C L 64 18 120/76 97 Room Air 07/22/25 23:18 36.4 C L 74 16 137/90 96 Room Air Diagnostic Findings CT scan reviewed. There is mild (1.1cm) dilation of the common hepatic artery near its origin. No surrounding inflammation. No other dilations/aneurysms identified in the aorta/iliac arteries/other visceral arteries PG Care Time/CCT Total # of Minutes Spent Total Time Spent with Patient: Total time spent is greater than 50% in coordination of care (as documented) at patient's floor/unit and/or counseling patient: Coding Level of Care Code 93505 IN/OBS CONSULT LVL 3,45M Diagnoses Abdominal pain R10.13 Abdominal location: epigastric
[2025-07-23] MEDS: FENOFIBRATE NANOCRYSTALLIZED 48 MG TABLET PO SCH (08:54)
[2025-07-23] MEDS: LOSARTAN POTASSIUM 25 MG TAB PO SCH (08:55)
[2025-07-23] MEDS: REMOVE NICODERM PATCH SCH (08:55)
[2025-07-23] MEDS: ROSUVASTATIN CALCIUM 20 MG TAB PO SCH (08:55)
[2025-07-23] MEDS: LORazepam 0.5 MG TAB PO PRN (10:42)
[2025-07-23 12:04] LABS: Cdiff Toxin B Gene (2yr or >) Negative Cdiff Gene (Neg)
[2025-07-23] MEDS ORDERED: LOPERAMIDE HCL 2 MG CAP PO PRN (12:11)
--- NOTE | 2025-07-23 12:37 | Hospitalist Progress Note ---
Date of Service July 23, 2025 Assessment & Plan (1) Abdominal pain: (2) Hypertension: (3) Diabetes mellitus type 2, controlled: (4) Dyslipidemia: (5) Tobacco use disorder: (6) Anxiety: Plan Patient is a 49 year old M with a past medical history of hypertension, diabetes mellitus type II, dyslipidemia, anxiety, tobacco use disorder presenting with abdominal pain, dyspepsia, dry heaving. Symptoms began 06/2025 with intermittent abdominal pain, decreased appetite, and "hot" feelings" without measurable fever x 7 days and was started on Cipro by PCP on 07/06. Patient experienced increased anxiety symptoms with Cipro and was prescribed Ativan by outpatient provider. Symptoms did not improve. On 07/11, he went [facility], stopped Cipro and was started on Carafate. Symptoms did not improve off antibiotics, so he then went back to PCP and , and was prescribed Amoxicillin, Clarithromycin, PPI and Carafate for suspected H Pylori infection. Overnight, he experienced worsening dyspepsia and dry heaving. Feels abdominal pain is mostly central, around umbilicus, but also reporting burning sensation to epigastric area not associated with food intake. Abdominal pain likely secondary to gastritis Diarrhea thought to be secondary to antibiotics Dilatation of hepatic artery: Incidental finding on ultrasound--no intervention needed per vascular surgery Patient was started on antibiotics outpatient for suspected H. pylori with no formal confirmation --CT ABD:No acute process within the abdomen or pelvis. Normal appendix. No bowel obstruction. No bowel wall thickening. --Gall Bladder USD:Small amount of gallbladder sludge. No evidence for acute cholecystitis or biliary obstruction.Mild fatty infiltration of the liver. Small echogenic lesion in the anterior aspect of the right lobe of the liver, not visualized on CT. Considerations a small hemangioma or vascular lesion. Otherwise negative. -- Normal LFTs --Lipase 7 --Stool PCR, stool for C. difficile negative Appreciate GI, vascular surgery input Advance diet as tolerated IV fluids as needed Continue Protonix, Carafate Discontinued antibiotics as recommended by GI Will need outpatient EGD for further evaluation Hypertension continue home irbesartan Monitor blood pressure Diabetes Mellitus Type II Controlled with A1C 5.9% (02/2025) per outpatient records Hold home metformin SSI while inpatient Monitor blood glucose levels Dyslipidemia On statin Tobacco Use Disorder Heavy tobacco user ~ smokes 1 pack/day Nicotine patch ordered Director Emergency Department to quit smoking Anxiety Ativan as needed DVT Px: SCDs Encouraged to ambulate Code status: Full Code Admission and Anticipated Discharge Date Admission Date: July 22, 2025 Subjective Patient is seen and examined at bedside States having transient nausea this morning which resolved Also reports generalized abdominal discomfort, bloating and flatus Had loose BMs today Denies any chest pain, dyspnea Prefers to be discharged home today No other complaints Review of Systems Review of Systems: All systems reviewed & are unremarkable except as noted in Subjective Physical Exam Physical Exam: Physical Exam: Vitals signs as noted above General Appearance:Moderately built and nourished, no apparent distress Head: normocephalic, Atraumatic Eyes: normal inspection, EOMI Neck: supple, Trachea midline Respiratory/Chest: Normal breath sounds, CTA, No accessory muscle use Cardiovascular: S1, S2, No murmur Abdomen/GI:Soft, mild general tender, Bowel sounds present, no guarding or rigidity Extremities/Musculoskeletal:normal inspection, no edema Neurologic/Psych:AAOX3, grossly no focal neurological deficits Skin: normal color, warm Results & Data Results & Data Vital Signs (Past 12 Hours) Vital Signs Temp Pulse Resp BP Pulse Ox O2 Del Method 07/23/25 07:20 36.1 C L 64 18 120/76 97 Room Air Laboratory Results Short CBC 07/23/25 Range/Units 06:41 WBC 9.70 (4.8-10.8) K/ul Hgb 15.9 (14.0-18.0) g/dL Hct 46.9 (42.0-52.0) % Plt Count 319 (130-400) K/uL BMP 07/23/25 06:41 Sodium 138 Potassium 4.0 Chloride 106 Carbon Dioxide 23 BUN 14 Creatinine 0.77 Glucose 95 Calcium 9.4 (1) Abdominal pain Abdominal location: epigastric Qualified Code(s): R10.13 - Epigastric pain
[2025-07-23] MEDS: ADVANCED PROBIOTIC 625 MG CAPSULE PO SCH (12:43)
--- NOTE | 2025-07-23 13:01 | Discharge Summary ---
Date of Service July 23, 2025 Admission HPI Per Admitting Provider Patient is a 49 year old M with a past medical history of hypertension, diabetes mellitus type II, dyslipidemia, anxiety, tobacco use disorder presenting with abdominal pain, dyspepsia, dry heaving. Symptoms began 06/2025 with intermittent abdominal pain, decreased appetite, and "hot" feelings" without measurable fever x 7 days and was started on Cipro by PCP on 07/06. Patient experienced increased anxiety symptoms with Cipro and was prescribed Ativan by outpatient provider. Symptoms did not improve. On 07/11, he went [facility], stopped Cipro and was started on Carafate. Symptoms did not improve off antibiotics, so he then went back to PCP and , and was prescribed Amoxicillin, Clarithromycin, PPI and Carafate for suspected H Pylori infection. Overnight, he experienced worsening dyspepsia and dry heaving. Feels abdominal pain is mostly central, around umbilicus, but also reporting burning sensation to epigastric area not associated with food intake. Denies fever, chills, weight loss, cognitive changes, vision/hearing changes, chest pain, SOB, swelling, difficulty breathing, urinary concerns, joint swelling/pain, ambulation difficulty, skin rashes, lesions, bleeding, bruising. Discussed with ED provider history of present illness and radiology findings from CT abdomen/pelvis. Reason for admission to investigate abdominal symptoms d/t minimal clinical response to outpatient treatment regimen, and consultation. In the emergency department, patient was hemodynamically stable with no evidence of infection or sepsis. Lab workup unremarkable. Slightly increased WBC with a normal Procalcitonin. LFTs normal. RUQ pain on exam. 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 Treatment in the ED consisted of IV fluid replacement with 500 ml NSS and famotidine. History obtained primarily from the patient and via hospitalization record. External chart review obtained from [facility]. Admission Exam Per Admitting Provider VITALS: Reviewed. WEIGHT/BMI reviewed. GEN: Healthy appearing, well-developed, NAD. PSYCH: Good Judgment. AOx3. Normal memory, mood, and affect. HEENT -Head: NC/AT; -Eyes: PERRL, EOMI. No discharge or redness; -Ears: External ears are normal. -Nose: Normal nares. -Mouth and throat: MMM. Normal gums, mucosa, palate,. Good dentition. NECK: Supple, with no masses. CV: S1, S2 without murmurs or extra beats, regular rhythm, no bruits, no swelling LUNGS: CTAB, no w/r/c. ABD: Soft, mildly distended, tender to RUQ, active bowel sounds, +belching on exam : N/A SKIN: Warm, well perfused. No skin rashes or abnormal lesions. MSK: No deformities, Normal gait. EXT: No clubbing, cyanosis, or edema. NEURO: Ambulating with no limitations. Normal muscle strength and tone. No focal deficits. Principal Diagnosis Abdominal pain/Suspected Gastritis Diarrhea Dilatation of hepatic artery Discharge Data Allergies Allergy/AdvReac Type Severity Reaction Status Date / Time No Known Allergies Allergy Verified 07/22/25 12:41 Consultations 07/22/25 11:12 ED Decision to Admit Stat 07/22/25 11:53 Consult Gastroenterology Routine 07/22/25 14:54 Consult Vascular Surgery Routine Procedures Performed Laboratory Results WBC 9.70 K/ul (4.8-10.8) 07/23/25 06:41 RBC 5.21 M/uL (4.70-6.10) 07/23/25 06:41 Hgb 15.9 g/dL (14.0-18.0) 07/23/25 06:41 Hct 46.9 % (42.0-52.0) 07/23/25 06:41 MCV 90.0 fL (80.0-100.0) 07/23/25 06:41 MCH 30.5 pg (25.0-34.0) 07/23/25 06:41 MCHC 33.9 g/dL (32.0-36.0) 07/23/25 06:41 RDW Std Deviation 41.3 fL (36.4-46.3) 07/23/25 06:41 RDW Coeff of Peyman 12.5 % (11.5-14.5) 07/23/25 06:41 Plt Count 319 K/uL (130-400) 07/23/25 06:41 MPV 10.7 fL (9.4-12.4) 07/23/25 06:41 Immature Gran % (Auto) 0.4 % 07/22/25 07:30 Neut % (Auto) 75.2 % 07/22/25 07:30 Lymph % (Auto) 17.0 % 07/22/25 07:30 [place] % (Auto) 5.3 % 07/22/25 07:30 Eos % (Auto) 1.2 % 07/22/25 07:30 Baso % (Auto) 0.9 % 07/22/25 07:30 Neut # (Auto) 8.85 K/uL (1.40-6.50) H 07/22/25 07:30 Lymph # (Auto) 2.00 K/uL (1.20-3.40) 07/22/25 07:30 [place] # (Auto) 0.63 K/uL (0.11-0.59) H 07/22/25 07:30 Eos # (Auto) 0.14 K/uL (0.00-0.50) 07/22/25 07:30 Baso # (Auto) 0.11 K/uL (0.00-0.20) 07/22/25 07:30 Immature Gran # (Auto) 0.05 K/uL (0.01-0.20) 07/22/25 07:30 PT 11.2 Seconds (9.0-12.0) 07/22/25 07:30 INR 1.1 (0.9-1.1) 07/22/25 07:30 APTT 26 Seconds (21-31) 07/22/25 07:30 PTT Ratio 1.0 07/22/25 07:30 Sodium 138 mmol/L (136-145) 07/23/25 06:41 Potassium 4.0 mmol/L (3.5-5.1) 07/23/25 06:41 Chloride 106 mmol/L (98-107) 07/23/25 06:41 Carbon Dioxide 23 mmol/L (21-32) 07/23/25 06:41 Anion Gap 9 (3-11) 07/23/25 06:41 BUN 14 mg/dl (6-23) 07/23/25 06:41 Creatinine 0.77 mg/dl (0.6-1.4) 07/23/25 06:41 Est Cr Clr Drug Dosing 131.6 ml/min 07/23/25 06:41 eGFR 109.07 07/23/25 06:41 BUN/Creatinine Ratio 18.2 (10-20) 07/23/25 06:41 Glucose 95 mg/dl (70-99(Fasting)) 07/23/25 06:41 POC Glucose 119 mg/dl (70-99) H 07/23/25 11:20 Lactate 2.0 mmol/L (0.4-2.0) 07/22/25 07:30 Calcium 9.4 mg/dl (8.6-10.3) 07/23/25 06:41 Magnesium 1.9 mg/dl (1.7-2.4) 07/22/25 07:30 Total Bilirubin 0.7 mg/dl (0.2-1.0) 07/22/25 07:30 AST 14 U/L (13-39) 07/22/25 07:30 ALT 29 U/L (7-52) 07/22/25 07:30 Alkaline Phosphatase 43 U/L (34-104) 07/22/25 07:30 Troponin I High Sens 2.5 pg/ml (0-20) 07/22/25 07:30 Total Protein 7.2 gm/dl (6.0-8.3) 07/22/25 07:30 Albumin 4.5 gm/dl (3.4-5.0) 07/22/25 07:30 Globulin 2.7 gm/dl (2.5-4.0) 07/22/25 07:30 Albumin/Globulin Ratio 1.7 (0.9-2) 07/22/25 07:30 Triglycerides 187 mg/dl (0-150) H 07/23/25 06:41 Cholesterol 99 mg/dl (0-200) 07/23/25 06:41 LDL Cholesterol, Calc 39 mg/dl 07/23/25 06:41 VLDL Cholesterol, Calc 37 mg/dl (0-30) H 07/23/25 06:41 HDL Cholesterol 23 mg/dl 07/23/25 06:41 Cholesterol/HDL Ratio 4.3 (0-5) 07/23/25 06:41 Lipase 7 U/L (11-82) L 07/22/25 07:30 Procalcitonin < 0.02 ng/ml (0-0.5) 07/22/25 07:30 Urine Color Yellow 07/22/25 08:15 Urine Appearance Clear (Clear) 07/22/25 08:15 Urine pH 6.0 (4.5-7.5) 07/22/25 08:15 Ur Specific [place] 1.012 (1.000-1.030) 07/22/25 08:15 Urine Protein Negative (Negative) 07/22/25 08:15 Urine Glucose (UA) Negative (Negative) 07/22/25 08:15 Urine Ketones Negative (Negative) 07/22/25 08:15 Urine Blood Negative (Negative) 07/22/25 08:15 Urine Nitrite Negative (Negative) 07/22/25 08:15 Urine Bilirubin Negative (Negative) 07/22/25 08:15 Urine Urobilinogen Negative (Negative) 07/22/25 08:15 Ur Leukocyte Esterase Negative (Negative) 07/22/25 08:15 Urine Comment 07/22/25 08:15 Stl C. cayetanensis PCR Not Detected (NotDetected) 07/22/25 17:30 Stool Rotavirus A PCR Not Detected (NotDetected) 07/22/25 17:30 Stl Adenov F 40/41 PCR Not Detected (NotDetected) 07/22/25 17:30 Stool Astrovirus (PCR) Not Detected (NotDetected) 07/22/25 17:30 Stool Campylobacter PCR Not Detected (NotDetected) 07/22/25 17:30 Stl C. diff Tox B Gene Negative Cdiff Gene (Neg) 07/23/25 11:15 Stl C. diff 027-NAP1-BI NEGATIVE 07/23/25 11:15 Stool Cryptosporidium PCR Not Detected (NotDetected) 07/22/25 17:30 Stl E.coli Shiga Tox PCR Not Detected (NotDetected) 07/22/25 17:30 Stl Enterotoxigenic E PCR Not Detected (NotDetected) 07/22/25 17:30 Stool EPEC (PCR) Not Detected (NotDetected) 07/22/25 17:30 Stool EAEC (PCR) Not Detected (NotDetected) 07/22/25 17:30 Stl E. histolytica PCR Not Detected (NotDetected) 07/22/25 17:30 Stool Giardia Lamblia PCR Not Detected (NotDetected) 07/22/25 17:30 Stool Salmonella PCR Not Detected (NotDetected) 07/22/25 17:30 Stool Sapovirus (PCR) Not Detected (NotDetected) 07/22/25 17:30 Stl P. shigelloides PCR Not Detected (NotDetected) 07/22/25 17:30 Stl Shigella/EIEC PCR Not Detected (NotDetected) 07/22/25 17:30 St Y.enterocolitica PCR Not Detected (NotDetected) 07/22/25 17:30 Stool Vibrio (PCR) Not Detected (NotDetected) 07/22/25 17:30 Stl Vibrio cholerae PCR Not Detected (NotDetected) 07/22/25 17:30 Stl Norovirus GI/GII PCR Not Detected (NotDetected) 07/22/25 17:30 Impressions Abdomen/Pelvis CT 07/22/25 07:13 CT SCAN OF THE ABDOMEN AND PELVIS WITH IV CONTRAST CLINICAL HISTORY: Mid abdominal pain. Nausea. COMPARISON STUDY: None. TECHNIQUE: Following the IV administration of 94 cc of Optiray 320, CT scan of the abdomen and pelvis is performed from the lung bases to the proximal femora. Images are reviewed in the axial, sagittal, and coronal planes. IV contrast was administered without complication. A dose lowering technique was utilized adhering to the principles of ALARA. CT DOSE: 1389.19 mGy.cm FINDINGS: Visualized lung bases are unremarkable. There is no pneumatosis, free air or portal venous gas. There are no hepatic lesions. There is no biliary or pancreatic ductal dilatation. Spleen, adrenal glands, kidneys and pancreas are unremarkable. There is no hydronephrosis. The caliber and wall and large bowel are. The appendix is normal. There is no lymphadenopathy. Major vasculature is patent. 8 mm of anterolisthesis of L5 on S1 is due to bilateral L5 pars defects. IMPRESSION: 1. No acute process within the abdomen or pelvis. 2. Normal appendix. No bowel obstruction. No bowel wall thickening. ACT 112: Negative or not required by law. Electronically signed by: Luis Angel Frausto M.D. 07/22/2025 9:10 AM Gallbladder Ultrasound 07/22/25 14:46 Exam(s): US GALLBLADDER EXAM: US Abdomen Limited, Right Upper Quadrant CLINICAL HISTORY: RUQ pain. TECHNIQUE: Real-time ultrasound of the right upper quadrant with image documentation. COMPARISON: CT abdomen 07/22/2025. FINDINGS: Liver: 17.3 cm in length. Mildly echogenic/fatty. 1.3 x 0.5 x 0.5 mm slightly ill-defined echogenic lesion in the anterior aspect of the right lobe of the liver. No intrahepatic bile duct dilation. Hepatopetal flow in the main portal vein. Gallbladder: Probable slight gallbladder sludge. No gallstones, wall thickening or sonographic Calderon's sign. Common bile duct: 4 mm. No stones. No dilation. Pancreas: Unremarkable as visualized. Right kidney: Unremarkable. No stones. No solid mass. No hydronephrosis. IMPRESSION: Small amount of gallbladder sludge. No evidence for acute cholecystitis or biliary obstruction. Mild fatty infiltration of the liver. Small echogenic lesion in the anterior aspect of the right lobe of the liver, not visualized on CT. Considerations a small hemangioma or vascular lesion. Otherwise negative. Electronically signed by: James Tracey M.D. 07/23/25 03:13 AM Ordered Studies 07/22/25 07:13 CT abd pelvis IV con only Stat 07/22/25 14:46 US gallbladder Urgent Hospital Course (1) Abdominal pain: (2) Hypertension: (3) Diabetes mellitus type 2, controlled: (4) Dyslipidemia: (5) Tobacco use disorder: (6) Anxiety: Plan Patient is a 49 year old M with a past medical history of hypertension, diabetes mellitus type II, dyslipidemia, anxiety, tobacco use disorder presenting with abdominal pain, dyspepsia, dry heaving. Symptoms began 06/2025 with intermittent abdominal pain, decreased appetite, and "hot" feelings" without measurable fever x 7 days and was started on Cipro by PCP on 07/06. Patient experienced increased anxiety symptoms with Cipro and was prescribed Ativan by outpatient provider. Symptoms did not improve. On 07/11, he went [facility], stopped Cipro and was started on Carafate. Symptoms did not improve off antibiotics, so he then went back to PCP and , and was prescribed Amoxicillin, Clarithromycin, PPI and Carafate for suspected H Pylori infection. Overnight, he experienced worsening dyspepsia and dry heaving. Feels abdominal pain is mostly central, around umbilicus, but also reporting burning sensation to epigastric area not a ssociated with food intake. Abdominal pain likely secondary to gastritis Diarrhea thought to be secondary to antibiotics Dilatation of hepatic artery: Incidental finding on ultrasound--no intervention needed per vascular surgery Patient was started on antibiotics outpatient for suspected H. pylori with no formal confirmation --CT ABD:No acute process within the abdomen or pelvis. Normal appendix. No bowel obstruction. No bowel wall thickening. --Gall Bladder USD:Small amount of gallbladder sludge. No evidence for acute cholecystitis or biliary obstruction.Mild fatty infiltration of the liver. Small echogenic lesion in the anterior aspect of the right lobe of the liver, not visualized on CT. Considerations a small hemangioma or vascular lesion. Otherwise negative. -- Normal LFTs --Lipase 7 --Stool PCR, stool for C. difficile negative Appreciate GI, vascular surgery input Discussed with GI today--no contraindication for discharge Tolerated low fiber diet IV fluids as needed Continue Protonix, Carafate Discontinued antibiotics as recommended by GI Will need outpatient EGD for further evaluation Hypertension continue home irbesartan Monitor blood pressure Diabetes Mellitus Type II Controlled with A1C 5.9% (02/2025) per outpatient records Hold home metformin SSI while inpatient Monitor blood glucose levels Dyslipidemia On statin Tobacco Use Disorder Heavy tobacco user ~ smokes 1 pack/day Nicotine patch ordered [employer] to quit smoking Anxiety Ativan as needed DVT Px: SCDs Encouraged to ambulate Code status: Full Code Total Time Total Time Spent Total Time Spent (In Minutes): 49 minutes Discharge Plan Discharge Items Patient Disposition: Home - Self-Care Reason For Visit: ABDOMINAL PAIN Discharge Diagnosis: Abdominal pain/Suspected Gastritis Diarrhea Dilatation of hepatic artery Condition on Discharge: Good Activity: Per Instructions section Exercise/Sports: Gradually increase as tolerated Non-emergency contact: Primary Care Provider and Dial Buffer Call non-emergency contact if: you have any medication questions, your symptoms worsen, your pain is concerning for you and you have a fever Follow-up/Referrals: Tessa Rojas MD [Primary Care Provider] - Diet: Low Fiber Addtl Attending Provider Instructions: -- Follow-up with your primary care physician Bob in 1 week -- Follow-up with your clam grader for outpatient upper endoscopy as recommended -- Your antibiotics were discontinued as recommended by your clam grader -- You are noted to have dilated hepatic artery on ultrasound. Your vascular surgeon recommends no further intervention currently and does not believe as a cause for your abdominal pain. Seek immediate medical attention if your symptoms reoccur or worsen Please review medication list provided on discharge for any medication changes as instructed. Please call if you have any questions or problems. You can reach a [facility] hospitalist on duty at [facility] 24 hours a day by calling [phone] Pending Studies at Discharge: No Stand-Alone Forms: My [facility], Smoking Cessation Medications and DC Order Prescriptions: New Advanced Probiotic 625 mg (10 billion cell) Capsule 1 cap PO DAILY Qty: 7 0RF loperamide 2 mg Capsule 2 mg PO Q4H PRN (Reason: loose stool) Qty: 20 0RF Continued sucralfate 1 gram tablet 1 g PO QID lorazepam 0.5 mg tablet 0.5 mg PO TID PRN (Reason: Anxiety) irbesartan 75 mg tablet 75 mg PO QAM Changed pantoprazole 40 mg Tablet,Delayed Release (Dr/Ec) 40 mg PO BID Qty: 60 0RF Held fenofibrate micronized 200 mg capsule 200 mg PO QAM Hold Instructions: Hold for 2 days until your diarrhea improves metformin 500 mg tablet extended release 24 hr 1,000 mg PO QAM Hold Instructions: Hold for 2 days until your diarrhea improves rosuvastatin 20 mg tablet 20 mg PO QAM Hold Instructions: Hold for 2 days until your abdominal pain improves Discontinued amoxicillin 500 mg Capsule 1,000 mg PO BID clarithromycin 500 mg Tablet 500 mg PO BID Discharge Orders: Discharge Order (Routine); Ordered 07/23/25 Ordered By: Darren Balbuena Admission Data Admit Date/Time: 07/22/25 11:53 Attending Provider: Darren Balbuena Admit Provider: Margaret Noble Primary Care Provider: Tessa Rojas Other Providers: Sunil Saez; Margaret Noble; Tom Bello
== END 2025-07-23 14:04 | disposition home or self-care (01) ==
LOC: ED 06:48 → EDINP 06:48 → SUATTDRO 11:53 → 3W 12:36

== ENCOUNTER 2025-08-01 19:05 | Observation (INO) ==
--- NOTE | 2025-08-01 19:24 | Emergency Department Note ---
Impression & Plan Altered mental status, Tobacco use disorder, Chest pain ED Provider Note NAME: ECTOR LI AGE: 49 SEX: M : 1975 ARRIVES VIA: Walk-In INFORMANT: Patient, ED PROVIDER(S): Bruce Ponce MD CHIEF COMPLAINT: Confusion, chest pain MEDICAL DECISION MAKING: Patient presents due to concern for chest pain and confusion. Patient is somewhat slow to respond but does open eyes and answers questions appropriately. No obvious focal deficits on exam. IV was established and blood work was obtained along with a chest x-ray and CT head. Patient is awake and a 15 but denies any infectious symptoms no reported headache. No falls or trauma per at bedside. Hemoglobin platelet count are unremarkable. Kidney function is unremarkable with normal electrolytes. Patient's TSH was elevated but free T4 is normal. Urinalysis negative for blood or infection UDS negative and BioFire negative. The patient CT head and chest x-ray are unremarkable. Upon reassessment the patient was much more awake and alert and back to his baseline. Unsure as to whether or not the patient could have had a seizure. Given these concerns do believe the patient would benefit from admission and further workup. Patient's EKG does not show evidence of obvious STEMI and the patient's troponin is negative. I did speak with Dr. Ospina and the patient was admitted to the medicine service. Discussion w/ other healthcare providers: Dr. Ospina inpatient medicine service Prior /Outside records reviewed: Reviewed part of a discharge summary from Dr. Balbuena from July 23. Known history of hypertension type 2 diabetes dyslipidemia anxiety and tobacco use who presented with abdominal pain dyspepsia and dry heaving. Patient was evaluated by GI and vascular surgery during his admission. GI noted the patient had an unclear etiology but was not toxic with intermittent symptoms. Recommended Protonix 40 twice daily stool PCR and seems appropriate for outpatient workup with EGD. He reportedly did have some bloating in June saw his PCP was given Cipro after CT scan did not yield any findings. It was felt that the patient likely had symptoms related to H. pylori treatment. Apparently had been treated with clarithromycin and amoxicillin. Patient was also evaluated by vascular surgery and noted to have an incidental finding of dilation of the common hepatic artery which was not thought to be related to his abdominal pain and did not require any intervention. Differential diagnosis: Cardiac ischemia, aortic dissection, pulmonary embolism, pneumothorax, pneumonia, pericarditis, myocarditis, GERD, cholecystitis, pancreatitis, musculoskeletal, as well as other pathologies were considered. Diagnostics, as interpreted by me: ECG: Normal sinus rhythm, rate of 84, normal intervals, normal axis no ST elevations. Cardiac monitoring: An order was placed for continuous cardiac monitoring. The monitor shows a rate of 85 with sinus rhythm. Patient was placed on pulse oximetry Medical decision rules: None Imaging studies: I informally interpreted the patient's chest x-ray does not show evidence of obvious pneumonia with formal report to follow. HPI: Patient presents due to concern for chest pain. He reports that he had the symptoms from about 5-6 o'clock today. Patient states it was left-sided and achy. No associated nausea vomiting or diaphoresis. No history of heart or lung disease. Does have a chronic smoker's cough but this is unchanged. No leg swelling or calf pain. No recent surgeries procedures or recent prolonged car plane travel. The patient was hospitalized back on the for GI related symptoms. Patient does follow with Abhi. No reported fevers or chills. He denies any headache. He typically takes his Carafate pill before dinner and when his came home she went to go fix dinner and subsequently he seemed a bit disoriented where instead of taking the pill he discussed slumped over onto the counter and then went to go sit down and had a brief shaking episode. She does report that she has a family member that has a history of epilepsy but this did not seem quite so severe as a seizure. No reported tongue biting or incontinence. He presented very talkative during the episode but was able to talk thereafter. She thinks that maybe he has some slurred speech. PAST MEDICAL HISTORY: See Below PAST SURGICAL HISTORY: See Below SOCIAL HISTORY: See Below HOME MEDICATIONS: See Below ALLERGIES: See Below VITALS: See Below PHYSICAL EXAMINATION: GENERAL: NAD, non-toxic. EYE EXAM: Normal conjunctiva. PERRL, no anisocoria and EOM's grossly intact w/o pain. OROPHARYNX: Moist mucus membranes, grossly normal dentition. NECK: Trachea midline, no stridor. LUNGS: Clear to auscultation. Normal chest wall mechanics. HEART: NSR, no MRG. ABDOMEN: Abdomen soft, non-tender, no masses, no rebound or guarding. BACK: No CVA TTP. SKIN: No rashes and no bruising. UPPER EXTREMITIES: Upper extremities are grossly normal. LOWER EXTREMITIES: Grossly normal, no edema. NEURO EXAM: Awake and alert, follows commands, no obvious facial asymmetry, normal speech, moves all 4 extremities. Good [id number]-irrh no drift, no sensory deficits. Past Med/Surg History Problem List (Updated 08/01/25 @ 22:52 by Bruce Ponce MD) Chest pain (Acute) Generalized anxiety disorder Irritable bowel syndrome with diarrhea Tremor due to orthostatic hypotension Altered mental status (Acute) RUQ pain Nausea (Acute) Abdominal pain (Acute) Tobacco use disorder (Acute) Anxiety Dyslipidemia Diabetes mellitus type 2, controlled Hypertension Social History Smoking Status: Current every day smoker Tobacco Type: Cigarettes Cigarettes Per Day: 1 pack; Second Hand Exposure: No; Do You Dip or Chew Tobacco: No; Hx Alcohol Use: No Hx Substance Use: No Preferred Language: [place] Communication Ability: Effective Vp Clinical Required: No Beliefs That Will Affect Care: None Current Living Situation: Spouse and Family Feels Safe at Home: Yes Allergies Allergies Allergy/AdvReac Type Severity Reaction Status Date / Time No Known Allergies Allergy Verified 08/01/25 21:34 Home Meds Home Medications Medication Instructions Recorded Confirmed fenofibrate micronized 200 mg 200 mg PO QAM 07/22/25 08/01/25 capsule irbesartan 75 mg tablet 75 mg PO QAM 07/22/25 08/01/25 lorazepam 0.5 mg tablet 0.5 mg PO TID PRN Anxiety 07/22/25 08/01/25 metformin 500 mg tablet,extended 1,000 mg PO QAM 07/22/25 08/01/25 release 24 hr rosuvastatin 20 mg tablet 20 mg PO QAM 07/22/25 08/01/25 sucralfate 1 gram tablet 1 g PO ACHS 07/22/25 08/01/25 citalopram 10 mg tablet 10 mg PO DAILY 08/01/25 08/01/25 Previous Rx's Medication Instructions Recorded loperamide 2 mg capsule 2 mg PO Q4H PRN loose stool #20 07/23/25 caps pantoprazole 40 mg tablet,delayed 40 mg PO BID #60 tabs 07/23/25 release Results & Data (ED) Vital Signs Vital Signs - 24 hr 08/01/25 19:08 08/01/25 19:30 08/01/25 19:31 Temperature 36.7 C Temperature Source Oral Pulse Rate 84 73 69 Pulse Rate [Finger] Pulse Rate from SpO2 Sensor 72 Pulse Rhythm Regular Pulse Rhythm [Finger] Pulse Strength Normal Pulse Strength [Finger] Respiratory Rate 18 20 Respiratory Effort / Characteristics Non-Labored Spontaneous Respiratory Depth Normal Respiratory Pattern Regular Blood Pressure 158/88 H 143/81 H Blood Pressure [Right Arm] Blood Pressure Mean 111 101 Blood Pressure Mean [Right Arm] Blood Pressure Position Sitting Pulse Oximetry 97 95 Oxygen Delivery Method Room Air Sepsis Recent Fever Within 48 Hours No Sepsis New/Unexplained Change in Mental Status N/A Sepsis Action Taken by Nursing No Action Required 08/01/25 19:38 08/01/25 19:39 08/01/25 20:30 Temperature Temperature Source Pulse Rate 68 Pulse Rate [Finger] Pulse Rate from SpO2 Sensor 66 Pulse Rhythm Pulse Rhythm [Finger] Pulse Strength Pulse Strength [Finger] Respiratory Rate 17 Respiratory Effort / Characteristics Respiratory Depth Respiratory Pattern Blood Pressure 138/80 Blood Pressure [Right Arm] Blood Pressure Mean 99 Blood Pressure Mean [Right Arm] Blood Pressure Position Pulse Oximetry 95 Oxygen Delivery Method Room Air Room Air Sepsis Recent Fever Within 48 Hours Sepsis New/Unexplained Change in Mental Status Sepsis Action Taken by Nursing 08/01/25 21:00 Temperature Temperature Source Pulse Rate Pulse Rate [Finger] 73 Pulse Rate from SpO2 Sensor Pulse Rhythm Pulse Rhythm [Finger] Regular Pulse Strength Pulse Strength [Finger] Normal Respiratory Rate 20 Respiratory Effort / Characteristics Respiratory Depth Respiratory Pattern Blood Pressure Blood Pressure [Right Arm] 142/85 H Blood Pressure Mean Blood Pressure Mean [Right Arm] 104 Blood Pressure Position Pulse Oximetry 96 Oxygen Delivery Method Room Air Sepsis Recent Fever Within 48 Hours Sepsis New/Unexplained Change in Mental Status Sepsis Action Taken by Assisted Medications Current Medication List: was personally reviewed by me Laboratory Data Attestation: I reviewed the patient's lab results. 08/01/25 19:19 08/01/25 19:19 Lab Results 08/01/25 08/01/25 Range/Units 19:19 Unknown WBC 15.56 H (4.8-10.8) K/ul RBC 5.33 (4.70-6.10) M/uL Hgb 16.9 (14.0-18.0) g/dL Hct 47.1 (42.0-52.0) % MCV 88.4 (80.0-100.0) fL MCH 31.7 (25.0-34.0) pg MCHC 35.9 (32.0-36.0) g/dL RDW Std Deviation 40.9 (36.4-46.3) fL RDW Coeff of Peyman 12.6 (11.5-14.5) % Plt Count 325 (130-400) K/uL MPV 11.4 (9.4-12.4) fL Immature Gran % (Auto) 0.4 % Neut % (Auto) 72.0 % Lymph % (Auto) 20.4 % [place] % (Auto) 5.7 % Eos % (Auto) 0.9 % Baso % (Auto) 0.6 % Neut # (Auto) 11.20 H (1.40-6.50) K/uL Lymph # (Auto) 3.17 (1.20-3.40) K/uL [place] # (Auto) 0.88 H (0.11-0.59) K/uL Eos # (Auto) 0.14 (0.00-0.50) K/uL Baso # (Auto) 0.10 (0.00-0.20) K/uL Immature Gran # (Auto) 0.07 (0.01-0.20) K/uL Sodium 138 (136-145) mmol/L Potassium 3.7 (3.5-5.1) mmol/L Chloride 107 (98-107) mmol/L Carbon Dioxide 22 (21-32) mmol/L Anion Gap 9 (3-11) BUN 17 (6-23) mg/dl Creatinine 0.84 (0.6-1.4) mg/dl Est Cr Clr Drug Dosing 119.4 ml/min eGFR 106.24 BUN/Creatinine Ratio 20.2 H (10-20) Glucose 101 H (70-99(Fasting)) mg/dl Calcium 9.8 (8.6-10.3) mg/dl Total Bilirubin 0.7 (0.2-1.0) mg/dl AST 15 (13-39) U/L ALT 33 (7-52) U/L Alkaline Phosphatase 48 (34-104) U/L Troponin I High Sens 3.5 (0-20) pg/ml Total Protein 7.5 (6.0-8.3) gm/dl Albumin 4.3 (3.4-5.0) gm/dl Globulin 3.2 (2.5-4.0) gm/dl Albumin/Globulin Ratio 1.3 (0.9-2) Lipase 4 L (11-82) U/L TSH 5.517 H (0.300-4.500) uIu/ml Free T4 1.32 (0.61-1.60) ng/dl Prolactin 13.15 ng/ml Urine Color Yellow Urine Appearance Clear (Clear) Urine pH 6.0 (4.5-7.5) Ur Specific Fisher 1.017 (1.000-1.030) Urine Protein Negative (Negative) Urine Glucose (UA) Negative (Negative) Urine Ketones Negative (Negative) Urine Blood Negative (Negative) Urine Nitrite Negative (Negative) Urine Bilirubin Negative (Negative) Urine Urobilinogen Negative (Negative) Ur Leukocyte Esterase Negative (Negative) Urine Comment Urine Opiates Screen Neg (Neg) Ur Methadone, Qual Neg (Neg) Urine Fentanyl Screen Neg (Neg) Urine Barbiturates Neg (Neg) Ur Phencyclidine (PCP) Neg (Neg) U Amphetamin/Meth Scrn Neg (Neg) MDMA (Ecstasy) Screen Neg (Neg) U Benzodiazepines Scrn Neg (Neg) Ur Cocaine Metabolite Neg (Neg) U Marijuana (THC) Screen Neg (Neg) Adenovirus (PCR) Not Detected (NotDetected) B. pertussis DNA (PCR) Not Detected (NotDetected) B.parapertussis DNA PCR Not Detected (NotDetected) Lyme Disease Screen Negative (Negative) C. pneumoniae DNA (PCR) Not Detected (NotDetected) Coronavirus OC43 (PCR) Not Detected (NotDetected) Coronavirus HKU1 (PCR) Not Detected (NotDetected) Coronavirus 229E (PCR) Not Detected (NotDetected) SARS-CoV-2 (PCR) Not Detected (NotDetected) Coronavirus NL63 (PCR) Not Detected (NotDetected) Human Metapneumovir PCR Not Detected (NotDetected) Influenza Type A (PCR) Not Detected (NotDetected) Influenza Type B (PCR) Not Detected (NotDetected) M. pneumoniae (PCR) Not Detected (NotDetected) Parainfluenza 1 (PCR) Not Detected (NotDetected) Parainfluenza 2 (PCR) Not Detected (NotDetected) Parainfluenza 3 (PCR) Not Detected (NotDetected) Parainfluenza 4 (PCR) Not Detected (NotDetected) RSV (PCR) Not Detected (NotDetected) Entero/Rhino (PCR) Not Detected (NotDetected) Imaging Data Radiologist's Impression: Chest X-Ray 08/01/25 19:19 Exam(s): XR CXR 1 VIEW EXAM: XR Chest, 1 View CLINICAL HISTORY: Reason for exam: Chest pain, nonspecific. TECHNIQUE: Frontal view of the chest. COMPARISON: None. FINDINGS: Lungs/Pleural space: Clear. No focal infiltrate, pleural effusion or pneumothorax. Heart: No cardiomegaly. Mediastinum: Unremarkable. Bones/Soft Tissues: No acute abnormality. IMPRESSION: 1. No acute process in the chest. Electronically signed by: Karen Nair M.D. 08/01/25 21:[address] 08/01/25 19:49 Exam(s): CT HEAD Without Contrast EXAM: CT Head Without Intravenous Contrast CLINICAL HISTORY: Reason for exam: confusion, shaking episode. TECHNIQUE: Axial computed tomography images of the head/brain without intravenous contrast. CTDI is 35 mGy and DLP is 546 mGy-cm. Automated exposure control was utilized for the study. A dose lowering technique was utilized adhering to the principles of ALARA. COMPARISON: None. FINDINGS: Brain: No mass, edema, mass effect or acute infarct. No acute hemorrhage. No abnormal density in the brain parenchyma. No Chiari malformation. No sellar or suprasellar mass. Ventricles: No hydrocephalus or midline shift. Bones/joints: No skull fracture. Soft tissues: No scalp hematoma. Visualized Sinuses: Clear. Mastoid air cells: No mastoid effusion. IMPRESSION: 1. No acute intracranial abnormality. Electronically signed by: Karen Nair M.D. 08/01/25 21:16 PM Discharge Plan Visit Data Chief Complaint: Chest Pain Stated Complaint: LIGHT-HEADED, DIZZY, TREMORS, ABD+CHEST PAIN ED Provider: Bruce Ponce Discharge Problem: Altered mental status, Tobacco use disorder, Chest pain Patient Disposition: Admitted As Inpatient Condition: Good Forms Stand Alone Forms: My [facility] Prescriptions Prescriptions: No Action sucralfate 1 gram tablet 1 g PO ACHS fenofibrate micronized 200 mg capsule 200 mg PO QAM Hold Instructions: Hold for 2 days until your diarrhea improves lorazepam 0.5 mg tablet 0.5 mg PO TID PRN (Reason: Anxiety) irbesartan 75 mg tablet 75 mg PO QAM metformin 500 mg tablet extended release 24 hr 1,000 mg PO QAM Hold Instructions: Hold for 2 days until your diarrhea improves rosuvastatin 20 mg tablet 20 mg PO QAM Hold Instructions: Hold for 2 days until your abdominal pain improves loperamide 2 mg Capsule 2 mg PO Q4H PRN (Reason: loose stool) Qty: 20 0RF pantoprazole 40 mg Tablet,Delayed Release (Dr/Ec) 40 mg PO BID Qty: 60 0RF citalopram 10 mg tablet 10 mg PO DAILY Rx Instructions: PER PT "STOPPED TAKING AFTER 1ST DOSE, DIDN'T FEEL RIGHT". Referrals Referrals: Tessa Rojas MD [Primary Care Provider] - Discharge Problem: Altered mental status Qualifiers: Altered mental status type: disorientation Qualified Code(s): R41.0 - Disorientation, unspecified Chest pain Qualifiers: Chest pain type: unspecified Qualified Code(s): R07.9 - Chest pain, unspecified
[2025-08-01 19:36] LABS: Hematocrit (blood only) 47.1 % (42.0-52.0); Hemoglobin 16.9 g/dL (14.0-18.0); Immature Granulocytes # (auto) 0.07 K/uL (0.01-0.20); Immature Granulocytes % (auto) 0.4 %; Mean Corpuscular Hemoglobin 31.7 pg (25.0-34.0); Mean Corpuscular Volume 88.4 fL (80.0-100.0); Platelet Count 325 K/uL (130-400); RDW Standard Deviation 40.9 fL (36.4-46.3); Red Blood Count 5.33 M/uL (4.70-6.10); White Blood Count 15.56 K/ul (4.8-10.8)
[2025-08-01 20:01] LABS: Alanine Aminotransferase 33.0 U/L (7-52); Albumin Globulin Ratio 1.3 (0.9-2); Albumin Level 4.3 gm/dl (3.4-5.0); Alkaline Phosphatase 48.0 U/L (34-104); Anion Gap 9.0 (3-11); Bilirubin,Total 0.7 mg/dl (0.2-1.0); Blood Urea Nitrogen 17.0 mg/dl (6-23); Calcium 9.8 mg/dl (8.6-10.3); Carbon Dioxide 22.0 mmol/L (21-32); Chloride 107.0 mmol/L (98-107); Creatinine Clr Calc Pharmacy 119.4 ml/min; Globulin 3.2 gm/dl (2.5-4.0); Glucose 101.0 mg/dl (70-99(Fasting)); Lipase 4.0 U/L (11-82); Potassium 3.7 mmol/L (3.5-5.1); Sodium 138.0 mmol/L (136-145); Total Protein 7.5 gm/dl (6.0-8.3)
[2025-08-01 20:16] LABS: Thyroid Stimulating Hormone 5.517 uIu/ml (0.300-4.500)
[2025-08-01 20:47] LABS: Appearance Urine Clear (Clear); Glucose Urine UA Negative (Negative)
[2025-08-01 20:51] LABS: T4 Free Thyroxine 1.32 ng/dl (0.61-1.60)
[2025-08-01 21:00] LABS: Chlamydia pneumoniae PCR Not Detected (NotDetected); Coronavirus 229E PCR Not Detected (NotDetected); Coronavirus CoV-2 (COVID19)PCR Not Detected (NotDetected); Coronavirus HKU1 PCR Not Detected (NotDetected); Coronavirus NL63 PCR Not Detected (NotDetected); Coronavirus OC43PCR Not Detected (NotDetected); Human Metapneumovirus PCR Not Detected (NotDetected); Parainfluenza Virus 1 PCR Not Detected (NotDetected); Parainfluenza Virus 2 PCR Not Detected (NotDetected); Parainfluenza Virus 3 PCR Not Detected (NotDetected); Parainfluenza Virus 4 PCR Not Detected (NotDetected); Respiratory Syncytial VirusPCR Not Detected (NotDetected); Rhinovirus/Enterovirus PCR Not Detected (NotDetected)
--- NOTE | 2025-08-01 21:16 | CT Scan Report ---
Exam(s): CT HEAD Without Contrast EXAM: CT Head Without Intravenous Contrast CLINICAL HISTORY: Reason for exam: confusion, shaking episode. TECHNIQUE: Axial computed tomography images of the head/brain without intravenous contrast. CTDI is 35 mGy and DLP is 546 mGy-cm. Automated exposure control was utilized for the study. A dose lowering technique was utilized adhering to the principles of ALARA. COMPARISON: None. FINDINGS: Brain: No mass, edema, mass effect or acute infarct. No acute hemorrhage. No abnormal density in the brain parenchyma. No Chiari malformation. No sellar or suprasellar mass. Ventricles: No hydrocephalus or midline shift. Bones/joints: No skull fracture. Soft tissues: No scalp hematoma. Visualized Sinuses: Clear. Mastoid air cells: No mastoid effusion. IMPRESSION: 1. No acute intracranial abnormality. Electronically signed by: Karen Nair M.D. 08/01/25 21:16 PM
--- NOTE | 2025-08-01 21:17 | XRay Report ---
Exam(s): XR CXR 1 VIEW EXAM: XR Chest, 1 View CLINICAL HISTORY: Reason for exam: Chest pain, nonspecific. TECHNIQUE: Frontal view of the chest. COMPARISON: None. FINDINGS: Lungs/Pleural space: Clear. No focal infiltrate, pleural effusion or pneumothorax. Heart: No cardiomegaly. Mediastinum: Unremarkable. Bones/Soft Tissues: No acute abnormality. IMPRESSION: 1. No acute process in the chest. Electronically signed by: Karen Nair M.D. 08/01/25 21:17 PM
[2025-08-01 22:04] LABS: Amphetamines+Metham, Urine Neg (Neg); MDMA (Ecstacy), Urine Neg (Neg); Marijuana, Urine Neg (Neg)
--- NOTE | 2025-08-01 22:23 | History & Physical Report ---
Date of Service August 01, 2025 Assessment & Plan (1) Altered mental status: (2) Tremor due to orthostatic hypotension: (3) Irritable bowel syndrome with diarrhea: (4) Generalized anxiety disorder: (5) Diabetes mellitus type 2, controlled: (6) Hypertension: (7) Tobacco use disorder: Plan Patient 49-year-old gentleman who has been dealing with chronic abdominal pain since at least June 2025. This persistent abdominal pain seems to have significantly increased his anxiety. Presents today with what sounds like near syncopal episode, possibly due to orthostasis versus partial seizure with some mild postictal confusion. Observe in a monitored unit MRI of the brain to rule out any anatomical abnormality EEG Check orthostatic vital signs, patient reports that he been laying on the couch with a heating pad for quite some time. He got up quickly to take his med ication when he began with the symptoms. I suspect this may have been some orthostasis. It may have resolved by the time his was able to get the blood pressure cuff since he had already sat back down. Will monitor his orthostatics. Continue his other outpatient medications as ordered, no patient has not been taking the Celexa. Nicotine supplementation Consult GI. Patient does have outpatient EGD scheduled for end of August, however, due to his persistent symptoms may be a candidate for in-hospital evaluation. I highly suspect patient has irritable bowel syndrome diarrhea prominent based on his history. This chronic abdominal pain is also then exacerbated his anxiety which then in turn exacerbates his abdominal pain. With his nicotine addiction Wellbutrin may be a good option for him to manage his irritable bowel and his anxiety, however, this also decreases seizure threshold. I have a low suspicion that his symptoms that he had today were seizure, however would not start Wellbutrin until after this has been ruled out. Will try some scheduled Bentyl. Part of his symptomatology and history does seem that his pain is crampy in nature. Will continue PPI twice daily. Continue to monitor glucose cover with insulin as needed History of Present Illness Chief Complaint: Altered mental status, confusion, headache, abdominal discomfort and pain Primary Care Provider: Tessa Rojas MD Patient is a 49-year-old gentleman with known diabetes, dyslipidemia and now chronic abdominal pain. Recent hospitalization for this abdominal pain and has outpatient EGD scheduled. Presents to the emergency room today after this evening when he got up off of laying on the couch had some head pain, dizziness, altered mental status, difficulty speaking and difficulty walking to the car to come to the emergency room. In the emergency room all this is cleared. Evaluation the emergency room is unremarkable for acute findings but due to his symptoms he was referred to our service for further evaluation. Time my evaluation patient seems to be back to his baseline. He states since his discharge from the hospital he still has not had any relief of his abdominal pain. He states he is not sleeping well. He states he is not eating well. He has had at least a 5 to 7 pound weight loss since the beginning of the month. He has lost 2 kg since his discharge on 07/23/2025. He has had no fever or chills. No cough or cold symptoms. He is struggling with a lot of anxiety because he does not have a diagnosis for his abdominal pain. He has struggled with intermittent anxiety periods in the past. He takes Ativan for this. However usually these are only been short-lived periods of time. He was just seen by his PCP this past Friday. Diagnosed with adjustment disorder with anxiety and was trial of Celexa. He took 1 dose and had some side effects which he attributed to the Celexa including worsening abdominal pain and headache and it did not take anymore since then. His states that he has had diarrhea for many many years. She states that is not unusual or for him to have 6 or 7 loose stools a day. He does take Imodium on a regular basis. Has never seen any blood in the diarrhea. She states actually his stools have slowed in frequency over the last couple weeks mostly due to the fact that he has eaten a lot less. Today's episode he states that he just was not feeling well with his abdominal pain came home and laid on the couch with a heating pad. His came home from work and was getting ready to make dinner so he quickly got up to take his Carafate. As he got up he got headache, lightheaded, blurred vision, bilateral arm numbness and facial numbness and he was able to quickly sit down. As he sat down he seemed to have some tremoring throughout his body witnessed by his . She checked his blood pressure and it was not low systolic in the 140s. When he was having this tremor he did not have the ability to speak much. He did not bite his tongue. He did not lose continence. She convinced him to go to the emergency room and she stated that it was difficult to get him to the car he was stumbling and walking like he was "drunk.". He does not use any alcohol. No illicit drug use. He does smoke significantly. Allergies Allergy/AdvReac Type Severity Reaction Status Date / Time No Known Allergies Allergy Verified 08/01/25 21:34 Home Medications Medication Instructions Recorded Confirmed Type fenofibrate micronized 200 mg 200 mg PO QAM 07/22/25 08/01/25 History capsule irbesartan 75 mg tablet 75 mg PO QAM 07/22/25 08/01/25 History lorazepam 0.5 mg tablet 0.5 mg PO TID PRN Anxiety 07/22/25 08/01/25 History metformin 500 mg tablet,extended 1,000 mg PO QAM 07/22/25 08/01/25 History release 24 hr rosuvastatin 20 mg tablet 20 mg PO QAM 07/22/25 08/01/25 History sucralfate 1 gram tablet 1 g PO ACHS 07/22/25 08/01/25 History loperamide 2 mg capsule 2 mg PO Q4H PRN loose stool #20 07/23/25 08/01/25 Rx caps pantoprazole 40 mg tablet,delayed 40 mg PO BID #60 tabs 07/23/25 08/01/25 Rx release citalopram 10 mg tablet 10 mg PO DAILY 08/01/25 08/01/25 History Past Med/Surg History Problem List (Updated 08/01/25 @ 22:22 by Angel Mayfield DO) Generalized anxiety disorder Irritable bowel syndrome with diarrhea Tremor due to orthostatic hypotension Altered mental status RUQ pain Nausea (Acute) Abdominal pain (Acute) Tobacco use disorder Anxiety Dyslipidemia Diabetes mellitus type 2, controlled Hypertension Social History Smoking Status: Current every day smoker Tobacco Type: Cigarettes Cigarettes Per Day: 1 pack; Second Hand Exposure: No; Do You Dip or Chew Tobacco: No; Hx Alcohol Use: No Hx Substance Use: No Preferred Language: Yakut Communication Ability: Effective Advertisement Compositor Required: No Beliefs That Will Affect Care: None Current Living Situation: Spouse and Family Feels Safe at Home: Yes Review of Systems Review of Systems: Pertinent positive and negative review of systems as mentioned in the HPI Physical Exam Physical Exam: Constitutional: Alert, mildly ill in appearance, nontoxic HEENT: Mucous membranes moist. Sclera clear Neck: Soft, no adenopathy Lungs: Clear to auscultation, decreased, no wheezes rales or rhonchi CV: S1-S2, regular Abdomen: Soft, diffuse tenderness but no guarding, no rigidity, no distention, no masses Extremities: No significant edema Musculoskeletal: No significant joint tenderness Neuro: No focal deficits Psych: Cooperative, irritable, anxious, suspicious of any type of additional workup Results & Data Results & Data Vital Signs (Past 12 Hours) Vital Signs Temp Pulse Pulse Resp BP BP Pulse Ox 08/01/25 21:00 73 20 142/85 H 96 08/01/25 20:30 68 17 138/80 95 08/01/25 19:39 08/01/25 19:38 08/01/25 19:31 69 08/01/25 19:30 73 20 143/81 H 95 08/01/25 19:08 36.7 C 84 18 158/88 H 97 O2 Del Method 08/01/25 21:00 Room Air 08/01/25 20:30 08/01/25 19:39 Room Air 08/01/25 19:38 Room Air 08/01/25 19:31 08/01/25 19:30 08/01/25 19:08 Room Air Diagnostic Findings Reviewed imaging, laboratory and diagnostic studies. Pertinent findings as below. WBCs 15.5 Hemoglobin 16.9 Platelets 325 Electrolytes within normal range Creatinine 0.4 Glucose of 101 LFTs within normal range Troponin 3.5 TSH 5.5 Prolactin pending Urinalysis unremarkable Urine drug screen negative Respiratory viral panel negative Head CT no acute abnormalities Chest x-ray personally reviewed, no acute cardiopulmonary abnormalities, no infiltrates or edema. Code Status & VTE Plan VTE Prophylaxis Plan VTE Prophylaxis will be ordered: Yes
--- NOTE | 2025-08-01 23:35 | XRay Report ---
Exam(s): XR ORBITS EXAM: XR Orbits, 4 or More Views CLINICAL HISTORY: Reason for exam: Screening for foreign body for MRI. TECHNIQUE: Frontal, lateral and oblique views of the orbits. COMPARISON: No relevant prior studies available. FINDINGS: Bones/joints: Unremarkable. No acute fracture. Sinuses: Unremarkable. No air-fluid levels. Soft tissues: Unremarkable. No radiopaque foreign body. IMPRESSION: No radiopaque foreign body overlying the orbits. Electronically signed by: Karen Nair M.D. 08/01/25 23:34 PM
[2025-08-02] MEDS ORDERED: CARBOHYDRATES FOR HYPOGLYCEMIA PO PRN (00:09)
[2025-08-02] MEDS ORDERED: GLUCAGON FOR INJ 1 MG VIAL SQ PRN (00:09)
[2025-08-02] MEDS ORDERED: GLUCOSE 10 TAB/TUBE PO PRN (00:09)
[2025-08-02] MEDS ORDERED: DEXTROSE 50% 50 ML SYRINGE IV PRN (00:09)
[2025-08-02] MEDS ORDERED: LOPERAMIDE HCL 2 MG CAP PO PRN (00:09)
[2025-08-02] MEDS ORDERED: ACETAMINOPHEN 325 MG TAB PO PRN (00:09)
[2025-08-02] MEDS ORDERED: GLUCOSE 40% GEL 15 GM TUBE PO PRN (00:09)
[2025-08-02] MEDS: GADOBUTROL 65ML VIAL IV ONE (00:42)
[2025-08-02] MEDS: DICYCLOMINE HCL 10 MG CAP PO SCH (00:52)
[2025-08-02] MEDS: ENOXAPARIN INJ 40 MG/0.4 ML SYR SQ SCH (00:52)
[2025-08-02] MEDS: SODIUM CHLORIDE 0.9% 1,000 ML IV SCH (00:55)
[2025-08-02] MEDS: NICOTINE POLACRILEX 2 MG GUM MT STA (00:55)
--- NOTE | 2025-08-02 01:24 | Magnetic Resonance Report ---
EXAM: MR brain wo/w con CLINICAL HISTORY: Mental status change TECHNIQUE: MRI of the brain was performed with and without intravenous contrast administration (9.5 ml Gadavist). Sequences obtained include pre-contrast and post-contrast T1-weighted, T2-weighted, FLAIR (Fluid-Attenuated Inversion Recovery), DWI (Diffusion-Weighted Imaging), and ADC (Apparent Diffusion Coefficient) sequences. COMPARISON: No previous studies are available for comparison. FINDINGS: Brain Parenchyma: No evidence of acute infarction or hemorrhage. Bertrand-white matter differentiation is preserved. No abnormal signal intensity lesions identified. Post-Contrast Findings: No abnormal enhancement of the brain parenchyma or meninges. Ventricles and Sulci: Ventricular system is within normal limits without evidence of hydrocephalus. Sulci and cisternal spaces are age-appropriate. Brainstem and Cerebellum: Normal appearance of the brainstem and cerebellum without focal lesions or abnormal enhancement. Vessels: Intracranial vessels appear normal without evidence of vascular malformations or aneurysms. Skull and Calvarium: No evidence of skull vault lesions or abnormal marrow signal within the calvarium. Bilateral maxillary and sphenoid sinuses retention cysts. Leftward deviation of nasal septum. Alma Delia bullosa of the right middle nasal turbinate. Hypertrophied right inferior nasal turbinate. IMPRESSION: 1. Normal brain parenchyma and structures. 2. No evidence of acute intracranial pathology or abnormal contrast enhancement. 3. Bilateral maxillary and sphenoid sinuses retention cysts. 4. Leftward deviation of nasal septum. Alma Delia bullosa of the right middle nasal turbinate. Hypertrophied right inferior nasal turbinate. Electronically signed by Ruben Goldstein 08-02-2025 01:23 AM
[2025-08-02] MEDS: ONDANSETRON INJ 2 MG/ML 2 ML VIAL IV PRN (03:18)
[2025-08-02] MEDS: NICOTINE POLACRILEX 2 MG GUM MT PRN (04:39)
[2025-08-02 07:39] LABS: Hematocrit (blood only) 45.6 % (42.0-52.0); Hemoglobin 15.9 g/dL (14.0-18.0); Mean Corpuscular Hemoglobin 31.4 pg (25.0-34.0); Mean Corpuscular Volume 89.9 fL (80.0-100.0); Platelet Count 314 K/uL (130-400); RDW Standard Deviation 42.0 fL (36.4-46.3); Red Blood Count 5.07 M/uL (4.70-6.10); White Blood Count 11.07 K/ul (4.8-10.8)
[2025-08-02] MEDS: ALUMINUM/MAGNESIUM SUSP 30 ML UDC PO PRN (07:39)
[2025-08-02 07:58] LABS: Alanine Aminotransferase 30.0 U/L (7-52); Albumin Level 4.5 gm/dl (3.4-5.0); Alkaline Phosphatase 44.0 U/L (34-104); Anion Gap 8.0 (3-11); Bilirubin,Total 0.9 mg/dl (0.2-1.0); Blood Urea Nitrogen 16.0 mg/dl (6-23); Calcium 9.4 mg/dl (8.6-10.3); Carbon Dioxide 22.0 mmol/L (21-32); Chloride 108.0 mmol/L (98-107); Creatinine Clr Calc Pharmacy 132.0 ml/min; Glucose 104.0 mg/dl (70-99(Fasting)); Potassium 4.0 mmol/L (3.5-5.1); Sodium 138.0 mmol/L (136-145); Total Protein 7.2 gm/dl (6.0-8.3)
[2025-08-02] MEDS: ROSUVASTATIN CALCIUM 20 MG TAB PO SCH (08:36)
[2025-08-02] MEDS: FENOFIBRATE NANOCRYSTALLIZED 145 MG TABLET PO SCH (08:36)
[2025-08-02] MEDS: LOSARTAN POTASSIUM 25 MG TAB PO SCH (08:36)
[2025-08-02] MEDS: NICOTINE 21 MG/24 HR TDSY TD SCH (08:37)
[2025-08-02] MEDS: REMOVE NICODERM PATCH SCH (08:37)
[2025-08-02] MEDS: INSULIN ASPART PER UNIT CHARGE SC SCH (09:08)
--- NOTE | 2025-08-02 09:08 | Gastrointestinal Consultation ---
Date of Consultation August 02, 2025 Assessment & Plan (1) Abdominal pain: 49 year old male with history of anxiety, HTN, T2DM, dyslipidemia, IBS and others below admitted w/ abd pain, weight loss CTAP last admission w/o acute findings, US w/ potential GB sludge but no stones/biliary dilation or acute findings, LFTs/lipase non-elevated. He does endorse improvement w/ carafate from time to time. He is tolerating PO intake today and is not sure if she is interested in staying overnight for endoscopic evaluation. If agreeable, NPO after midnight for EGD 08/03. Otherwise, can keep OP EGD as scheduled. Should have OP colonoscopy for colon cancer screening if he has not had this study done. Continue Pantoprazole twice daily. May use Carafate, liquid QID for 14 days. Can use Bentyl as needed. We appreciate assistance in the management of any serological abnormality and corrections to include: hemoglobin >7, INR <2, platelets >50,000, potassium levels >3.5 but <5.3, and sodium levels within 5 points of the reference range prior to endoscopic evaluation. Thank you for allowing us to participate in the care of this patient. Please call with any acute changes, questions or concerns. Please see addendum below with additional recommendation from my supervising physician. I spent a total of 60 minutes on the date of service in review of patient's record, and previously obtained information in person and appropriate medical visit, discussion and education of plan, with patient and/or caregiver, placing orders for tests/referral/procedures as medically necessary and documentation of pertinent clinical information in patient's medical records for their visit today. (2) Nausea: Supervising Physician Co-Signing Physician Notes ATTENDING ADDENDUM The patient was seen and evaluated prehospital labs, data, records and imaging reviewed at length. The case was discussed and reviewed with the GI nurse practitioner and I agree with her assessment plan as outlined above. The patient has had issues with early satiety, fullness, bloating since June 27, 2025 of uncertain etiology. He has unfortunately been partially treated empirically for diverticulitis with ciprofloxacin which was difficult to tolerate as well as a empiric partial course of clarithromycin and amoxicillin based triple therapy. This is likely resulted in some degree of dysbiosis which may be contributing to abdominal gas and bloating. The patient likely has a component of functional dyspepsia particular given underlying anxiety. The patient was scheduled for upper endoscopy next month but we will move this to tomorrow at which point we can assess for any celiac disease, H. pylori infection, atypical peptic ulcer disease and help further guide therapy thereafter. History of Present Illness Reason for Consultation: Persistent abdominal pain, weight loss, IBS Requesting Physician: Simon Wetzel MD Attending Physician: Simon Wetzel MD History of Present Illness 49 year old male with history of anxiety, HTN, T2DM, dyslipidemia, IBS and others below admitted w/ abd pain, weight loss - GI asked to evaluate. He notes his symptoms started on June 27. No known aggravating factor. Pain occurs at random. Sometimes improves w/ oral intake. Pain is located at epigastric region and near umbilicus. Explained as burning sensation. Carafate has improved the pain. He denies vomiting but has had nausea. Alternating bowel habits. No black or bloody stools.He was empirically treated for H.Pylori w/o testing last month. He endorses weight loss but is unable to quantify an amount. During evaluation this AM he is eating toast and eggs w/o discomfort. WBC 11 HGB 15.9 PLT 314 INR 1.1 Tb 0.9 AST 15 ALT 30 ALKP 44 Lipase 4 Stool testing 2024: negative c.diff, negative stool PCR Ongoing tobacco use w/ 1 PPD No ETOH No marijuana No NSAIDs CTAP w/o acute findings last week ABD US w/ potential sludge but not stones or biliary dilation No recent EGD/Colonoscopy Allergies Allergy/AdvReac Type Severity Reaction Status Date / Time No Known Allergies Allergy Verified 08/01/25 21:34 Home Medications Medication Instructions Recorded Confirmed Type fenofibrate micronized 200 mg 200 mg PO QAM 07/22/25 08/01/25 History capsule irbesartan 75 mg tablet 75 mg PO QAM 07/22/25 08/01/25 History lorazepam 0.5 mg tablet 0.5 mg PO TID PRN Anxiety 07/22/25 08/01/25 History metformin 500 mg tablet,extended 1,000 mg PO QAM 07/22/25 08/01/25 History release 24 hr rosuvastatin 20 mg tablet 20 mg PO QAM 07/22/25 08/01/25 History sucralfate 1 gram tablet 1 g PO ACHS 07/22/25 08/01/25 History loperamide 2 mg capsule 2 mg PO Q4H PRN loose stool #20 07/23/25 08/01/25 Rx caps pantoprazole 40 mg tablet,delayed 40 mg PO BID #60 tabs 07/23/25 08/01/25 Rx release citalopram 10 mg tablet 10 mg PO DAILY 08/01/25 08/01/25 History Patient History Social History Smoking Status: Current every day smoker Tobacco Type: Cigarettes Cigarettes Per Day: 1 Pack per day; Second Hand Exposure: No; Do You Dip or Chew Tobacco: No; Hx Alcohol Use: No Hx Substance Use: No Preferred Language: Slovak Communication Ability: Effective Soap Maker Required: No Beliefs That Will Affect Care: None Current Living Situation: Spouse Feels Safe at Home: Yes Assistive Devices: Glasses Review of Systems Review of Systems: All other findings negative except as noted in HPI. Physical Exam Constitutional: WD/WN, vitals as above Respiratory: normal respiratory effort, lungs clear to auscultation Cardiovascular: RRR, no murmur, no edema Gastrointestinal (Abdomen): normal bowel sounds, soft, nontender, no hepatosplenomegaly Skin: no rashes, warm and dry Results & Data Vital Signs (Past 12 Hours) Vital Signs Temp Pulse Pulse Resp BP BP BP 08/02/25 07:46 97.5 F L 73 20 102/68 08/02/25 04:17 97.7 F 64 20 111/71 08/02/25 00:09 08/01/25 23:27 64 08/01/25 23:25 98.1 F 61 16 123/75 08/01/25 22:59 08/01/25 22:30 87 23 129/110 H 08/01/25 22:00 83 14 148/79 H 08/01/25 21:30 68 12 142/85 H 08/01/25 21:00 71 21 150/89 H 08/01/25 21:00 73 20 142/85 H Pulse Ox Pulse Ox O2 Del Method O2 Del Method 08/02/25 07:46 97 Room Air 08/02/25 04:17 97 Room Air 08/02/25 00:09 96 Room Air 08/01/25 23:27 08/01/25 23:25 97 Room Air 08/01/25 22:59 Room Air 08/01/25 22:30 08/01/25 22:00 08/01/25 21:30 96 08/01/25 21:00 08/01/25 21:00 96 Room Air Laboratory Results 08/02/25 08/02/25 08/01/25 Range/Units 08:39 07:16 Unknown WBC 11.07 H (4.8-10.8) K/ul RBC 5.07 (4.70-6.10) M/uL Hgb 15.9 (14.0-18.0) g/dL Hct 45.6 (42.0-52.0) % MCV 89.9 (80.0-100.0) fL MCH 31.4 (25.0-34.0) pg MCHC 34.9 (32.0-36.0) g/dL RDW Std Deviation 42.0 (36.4-46.3) fL RDW Coeff of Peyman 12.7 (11.5-14.5) % Plt Count 314 (130-400) K/uL MPV 11.4 (9.4-12.4) fL Immature Gran % (Auto) % Neut % (Auto) % Lymph % (Auto) % Sterling % (Auto) % Eos % (Auto) % Baso % (Auto) % Neut # (Auto) (1.40-6.50) K/uL Lymph # (Auto) (1.20-3.40) K/uL Sterling # (Auto) (0.11-0.59) K/uL Eos # (Auto) (0.00-0.50) K/uL Baso # (Auto) (0.00-0.20) K/uL Immature Gran # (Auto) (0.01-0.20) K/uL Sodium 138 (136-145) mmol/L Potassium 4.0 (3.5-5.1) mmol/L Chloride 108 H (98-107) mmol/L Carbon Dioxide 22 (21-32) mmol/L Anion Gap 8 (3-11) BUN 16 (6-23) mg/dl Creatinine 0.76 (0.6-1.4) mg/dl Est Cr Clr Drug Dosing 132.0 ml/min eGFR 109.50 BUN/Creatinine Ratio 21.1 H (10-20) Glucose 104 H (70-99(Fasting)) mg/dl POC Glucose 110 H (70-99) mg/dl Calcium 9.4 (8.6-10.3) mg/dl Total Bilirubin 0.9 (0.2-1.0) mg/dl Direct Bilirubin 0.2 (0-0.2) mg/dl AST 15 (13-39) U/L ALT 30 (7-52) U/L Alkaline Phosphatase 44 (34-104) U/L Troponin I High Sens (0-20) pg/ml Total Protein 7.2 (6.0-8.3) gm/dl Albumin 4.5 (3.4-5.0) gm/dl Globulin (2.5-4.0) gm/dl Albumin/Globulin Ratio (0.9-2) Lipase (11-82) U/L TSH (0.300-4.500) uIu/ml Free T4 (0.61-1.60) ng/dl Prolactin ng/ml Urine Color Yellow Urine Appearance Clear (Clear) Urine pH 6.0 (4.5-7.5) Ur Specific Archer 1.017 (1.000-1.030) Urine Protein Negative (Negative) Urine Glucose (UA) Negative (Negative) Urine Ketones Negative (Negative) Urine Blood Negative (Negative) Urine Nitrite Negative (Negative) Urine Bilirubin Negative (Negative) Urine Urobilinogen Negative (Negative) Ur Leukocyte Esterase Negative (Negative) Urine Comment Urine Opiates Screen Neg (Neg) Ur Methadone, Qual Neg (Neg) Urine Fentanyl Screen Neg (Neg) Urine Barbiturates Neg (Neg) Ur Phencyclidine (PCP) Neg (Neg) U Amphetamin/Meth Scrn Neg (Neg) MDMA (Ecstasy) Screen Neg (Neg) U Benzodiazepines Scrn Neg (Neg) Ur Cocaine Metabolite Neg (Neg) U Marijuana (THC) Screen Neg (Neg) Adenovirus (PCR) Not Detected (NotDetected) B. pertussis DNA (PCR) Not Detected (NotDetected) B.parapertussis DNA PCR Not Detected (NotDetected) Lyme Disease Screen (Negative) C. pneumoniae DNA (PCR) Not Detected (NotDetected) Coronavirus OC43 (PCR) Not Detected (NotDetected) Coronavirus HKU1 (PCR) Not Detected (NotDetected) Coronavirus 229E (PCR) Not Detected (NotDetected) SARS-CoV-2 (PCR) Not Detected (NotDetected) Coronavirus NL63 (PCR) Not Detected (NotDetected) Human Metapneumovir PCR Not Detected (NotDetected) Influenza Type A (PCR) Not Detected (NotDetected) Influenza Type B (PCR) Not Detected (NotDetected) M. pneumoniae (PCR) Not Detected (NotDetected) Parainfluenza 1 (PCR) Not Detected (NotDetected) Parainfluenza 2 (PCR) Not Detected (NotDetected) Parainfluenza 3 (PCR) Not Detected (NotDetected) Parainfluenza 4 (PCR) Not Detected (NotDetected) RSV (PCR) Not Detected (NotDetected) Entero/Rhino (PCR) Not Detected (NotDetected) 08/01/25 Range/Units 19:19 WBC 15.56 H (4.8-10.8) K/ul RBC 5.33 (4.70-6.10) M/uL Hgb 16.9 (14.0-18.0) g/dL Hct 47.1 (42.0-52.0) % MCV 88.4 (80.0-100.0) fL MCH 31.7 (25.0-34.0) pg MCHC 35.9 (32.0-36.0) g/dL RDW Std Deviation 40.9 (36.4-46.3) fL RDW Coeff of Peyman 12.6 (11.5-14.5) % Plt Count 325 (130-400) K/uL MPV 11.4 (9.4-12.4) fL Immature Gran % (Auto) 0.4 % Neut % (Auto) 72.0 % Lymph % (Auto) 20.4 % Sterling % (Auto) 5.7 % Eos % (Auto) 0.9 % Baso % (Auto) 0.6 % Neut # (Auto) 11.20 H (1.40-6.50) K/uL Lymph # (Auto) 3.17 (1.20-3.40) K/uL Sterling # (Auto) 0.88 H (0.11-0.59) K/uL Eos # (Auto) 0.14 (0.00-0.50) K/uL Baso # (Auto) 0.10 (0.00-0.20) K/uL Immature Gran # (Auto) 0.07 (0.01-0.20) K/uL Sodium 138 (136-145) mmol/L Potassium 3.7 (3.5-5.1) mmol/L Chloride 107 (98-107) mmol/L Carbon Dioxide 22 (21-32) mmol/L Anion Gap 9 (3-11) BUN 17 (6-23) mg/dl Creatinine 0.84 (0.6-1.4) mg/dl Est Cr Clr Drug Dosing 119.4 ml/min eGFR 106.24 BUN/Creatinine Ratio 20.2 H (10-20) Glucose 101 H (70-99(Fasting)) mg/dl POC Glucose (70-99) mg/dl Calcium 9.8 (8.6-10.3) mg/dl Total Bilirubin 0.7 (0.2-1.0) mg/dl Direct Bilirubin (0-0.2) mg/dl AST 15 (13-39) U/L ALT 33 (7-52) U/L Alkaline Phosphatase 48 (34-104) U/L Troponin I High Sens 3.5 (0-20) pg/ml Total Protein 7.5 (6.0-8.3) gm/dl Albumin 4.3 (3.4-5.0) gm/dl Globulin 3.2 (2.5-4.0) gm/dl Albumin/Globulin Ratio 1.3 (0.9-2) Lipase 4 L (11-82) U/L TSH 5.517 H (0.300-4.500) uIu/ml Free T4 1.32 (0.61-1.60) ng/dl Prolactin 13.15 ng/ml Urine Color Urine Appearance (Clear) Urine pH (4.5-7.5) Ur Specific Archer (1.000-1.030) Urine Protein (Negative) Urine Glucose (UA) (Negative) Urine Ketones (Negative) Urine Blood (Negative) Urine Nitrite (Negative) Urine Bilirubin (Negative) Urine Urobilinogen (Negative) Ur Leukocyte Esterase (Negative) Urine Comment Urine Opiates Screen (Neg) Ur Methadone, Qual (Neg) Urine Fentanyl Screen (Neg) Urine Barbiturates (Neg) Ur Phencyclidine (PCP) (Neg) U Amphetamin/Meth Scrn (Neg) MDMA (Ecstasy) Screen (Neg) U Benzodiazepines Scrn (Neg) Ur Cocaine Metabolite (Neg) U Marijuana (THC) Screen (Neg) Adenovirus (PCR) (NotDetected) B. pertussis DNA (PCR) (NotDetected) B.parapertussis DNA PCR (NotDetected) Lyme Disease Screen Negative (Negative) C. pneumoniae DNA (PCR) (NotDetected) Coronavirus OC43 (PCR) (NotDetected) Coronavirus HKU1 (PCR) (NotDetected) Coronavirus 229E (PCR) (NotDetected) SARS-CoV-2 (PCR) (NotDetected) Coronavirus NL63 (PCR) (NotDetected) Human Metapneumovir PCR (NotDetected) Influenza Type A (PCR) (NotDetected) Influenza Type B (PCR) (NotDetected) M. pneumoniae (PCR) (NotDetected) Parainfluenza 1 (PCR) (NotDetected) Parainfluenza 2 (PCR) (NotDetected) Parainfluenza 3 (PCR) (NotDetected) Parainfluenza 4 (PCR) (NotDetected) RSV (PCR) (NotDetected) Entero/Rhino (PCR) (NotDetected) PG Care Time/CCT Total # of Minutes Spent Total Time Spent with Patient: Total time spent is greater than 50% in coordination of care (as documented) at patient's floor/unit and/or counseling patient: Coding Level of Care Code 61269 IN/OBS CONSULT LVL 4,60M Diagnoses Abdominal pain R10.13 Abdominal location: epigastric Nausea R11.0 (1) Abdominal pain Abdominal location: epigastric Qualified Code(s): R10.13 - Epigastric pain
[2025-08-02] MEDS: LORazepam 0.5 MG TAB PO PRN (10:33)
[2025-08-02] MEDS: SUCRALFATE 1 GM/10 ML UDC PO SCH (12:20)
--- NOTE | 2025-08-02 13:04 | Electrocardiogram Report ---
Test Reason : Blood Pressure : */* mmHG Vent. Rate : 84 BPM Atrial Rate : 84 BPM P-R Int : 130 ms QRS Dur : 88 ms QT Int : 376 ms P-R-T Axes : * 41 -75 degrees QTcB Int : 444 ms Ectopic atrial vs accelerated junctional rhythm Nonspecific ST abnormality Abnormal ECG When compared with ECG of 22-Jul-2025 07:22, QRS axis Shifted left Nonspecific T wave abnormality, worse in Inferior leads New P wave axis Confirmed by Nasir Galdamez ([id number]) on 08/02/2025 1:03:57 PM Referred By: REFERRED SELF Confirmed By: Nasir Galdamez
--- NOTE | 2025-08-02 13:08 | Electrocardiogram Report ---
Test Reason : Blood Pressure : */* mmHG Vent. Rate : 66 BPM Atrial Rate : 66 BPM P-R Int : 158 ms QRS Dur : 88 ms QT Int : 424 ms P-R-T Axes : 30 91 50 degrees QTcB Int : 444 ms Normal sinus rhythm Possible Right ventricular hypertrophy Incomplete right bundle branch block Abnormal ECG When compared with ECG of 01-Aug-2025 19:19, (unconfirmed) Nonspecific T wave abnormality no longer evident in Inferior leads Confirmed by Nasir Galdamez ([id number]) on 08/02/2025 1:08:15 PM Referred By: REFERRED SELF Confirmed By: Nasir Galdamez
--- NOTE | 2025-08-02 13:25 | Hospitalist Progress Note ---
Date of Service August 02, 2025 Assessment & Plan (1) Tremor due to orthostatic hypotension: (2) Abdominal pain: (3) Generalized anxiety disorder: (4) Diabetes mellitus type 2, controlled: (5) Hypertension: (6) Tobacco use disorder: Plan 49 year old male with PMH significant for type 2 diabetes, hypertension, hyperlipidemia, fatty liver, tobacco use disorder, anxiety who presented to the ED on 08/01/2025 with an episode of tremoring with head and neck pain and ongoing chronic abdominal pain. Tremor due to orthostatic hypotension Had an episode of head and neck pain with full body tremoring after getting up quickly from the couch - denies any dizziness, lightheadedness, chest pain, SOB prior to getting up Likely due to orthostasis given quick change in position but seizure could be possible given tremoring Labs, UA, tox screen grossly unremarkable Head CT and MRI negative EEG completed and pending read Orthostatics negative Chronic abdominal pain Reports chronic and constant abdominal pain described as "ickiness" with occasional burning sensation since June Previously admitted from 07/22-07/23 with negative CTAP, gallbladder US with small amount of sludge (normal LFTs, lipase), negative stool studies-> advised outpatient EGD scheduled for 08/29 GI consulted and proceeding with inpatient EGD tomorrow Continue PPI, bentyl, simethicone as needed Carafate on hold due to EGD NPO at midnight Hypertension BP 90s/50s after losartan admin Hold in am and monitor BP Hyperlipidemia Continue fenofibrate and rosuvastatin Type 2 diabetes Hold metformin BSG ACHS and SSI while inpatient Anxiety Exacerbated by chronic abdominal pain Continue ativan PRN Stopped taking celexa after one dose Tobacco use disorder Nicotine patch and gum Counseled cessation DVT Prophylaxis: SCDs/TEDs due to EGD tomorrow Code Status: FULL CODE PCP: Tessa Hooper Disposition: anticipate dc home after EGD tomorrow Patient seen in collaboration with Dr. Wetzel. Please see addendum. I spent a total of 60 minutes coordinating, documenting and providing care for this patient excluding time spent in the performance of separately billed services or time spent by another provider/QHP. Admission and Anticipated Discharge Date Admission Date: August 01, 2025 Supervising Physician Co-Signing Physician Notes Pt seen and examined by me, care coordinated w/ M. Rocío, [employer], pls refer to her note above fur further detail. Pt is a 49 year old male with type 2 diabetes, hypertension, hyperlipidemia, fatty liver, tobacco use disorder, anxiety who presented to the ED on 08/01/2025 with an episode of tremoring with head and neck pain and ongoing chronic abdominal pain. In addition to info in the note above pt reports he has been loosing weight. EEG and brain MRI ordered to evaluate episode of tremors and AMS. Brain MRI negat. EEG results pending. Pt was also evaluated by GI - plan for EGD tomorrow. Currently pt is lying in bed in NAD. He is awake, alert, oriented and answers appropriately. He is aware to be NPO after MN. Abdomen is soft, tender in epigastric area as well as lower abd. Lungs CTAB, heart sounds regular. There is no LE edema and pt is moving extremities. Cont. IVF, PPI, cont. to closely monitor. MD Damari Subjective Patient seen resting in bed Reports chronic and constant abdominal pain described as "ickiness" with occasional burning sensation since June Diarrhea from previous admission earlier in the month resolved with immodium Now having 1-2 formed BMs daily without blood or mucus Had an episode of head and neck pain with full body tremoring after getting up quickly from the couch - denies any dizziness, lightheadedness, chest pain, SOB prior to getting up Currently denies dizziness, head or neck pain, chest pain, SOB, N/V/D Review of Systems Review of Systems: All systems reviewed & are unremarkable except as noted in HPI & below Physical Exam Physical Exam: General/Psych: WD/WN, sitting up in bed, NAD, conversing easily Head: normocephalic, atraumatic Eyes: normal inspection, PERRL, conjunctivae pink ENT: external ear and nose normal, oropharynx normal Neck: normal visual inspection, trachea midline Respiratory: normal respiratory effort, lungs clear to auscultation, no wheeze/rales/rhonchi, no accessory muscle use Cardiovascular: regular rate and rhythm, no murmur/rub/gallop Extremities: no cyanosis or clubbing, normal peripheral pulses, no BLE edema Abdomen/GI: normal bowel sounds, soft, tender on palpation Neurologic/MSK: A+Ox3, motor strength 5/5, moves all extremities Skin: no rashes, normal color, warm and dry Results & Data Results & Data Vital Signs (Past 12 Hours) Vital Signs Temp Pulse Pulse Resp BP Pulse Ox O2 Del Method 08/02/25 12:15 36.8 C 75 16 95/55 L 98 Room Air 08/02/25 09:15 63 08/02/25 07:46 36.4 C L 73 20 102/68 97 Room Air 08/02/25 04:17 36.5 C 64 20 111/71 97 Room Air Laboratory Results Short CBC 08/01/25 08/02/25 Range/Units 19:19 07:16 WBC 15.56 H 11.07 H (4.8-10.8) K/ul Hgb 16.9 15.9 (14.0-18.0) g/dL Hct 47.1 45.6 (42.0-52.0) % Plt Count 325 314 (130-400) K/uL BMP 08/01/25 08/02/25 19:19 07:16 Sodium 138 138 Potassium 3.7 4.0 Chloride 107 108 H Carbon Dioxide 22 22 BUN 17 16 Creatinine 0.84 0.76 Glucose 101 H 104 H Calcium 9.8 9.4 Liver Function 08/01/25 08/02/25 Range/Units 19:19 07:16 Total Bilirubin 0.7 0.9 (0.2-1.0) mg/dl Direct Bilirubin 0.2 (0-0.2) mg/dl AST 15 15 (13-39) U/L ALT 33 30 (7-52) U/L Alkaline Phosphatase 48 44 (34-104) U/L Albumin 4.3 4.5 (3.4-5.0) gm/dl Urine 08/01/25 Range/Units Unknown Urine Color Yellow Urine Appearance Clear (Clear) Urine pH 6.0 (4.5-7.5) Ur Specific [place] 1.017 (1.000-1.030) Urine Protein Negative (Negative) Urine Glucose (UA) Negative (Negative) I have independently reviewed and interpreted patient's labs including CBC and CMP Medications Administered Current Inpatient Medications Acetaminophen (Acetaminophen 325 Mg Tab) 650 mg PO Q4H PRN PRN Reason: Pain or Fever Stop: 09/01/25 00:08 Al Hydrox/Mg Hydrox/Simethicone (Aluminum/Magnesium Susp 30 Ml Udc) 15 ml PO Q4H PRN PRN Reason: Dyspepsia Stop: 12/25/25 00:08 Last Admin: 08/02/25 07:39 Dose: 15 ml Dextrose (Dextrose 50% 50 Ml Syringe) 25 - 50 ml IV UD PRN; Protocol PRN Reason: Hypoglycemia Protocol Stop: 09/01/25 00:08 Dicyclomine HCl (Dicyclomine Hcl 10 Mg Cap) 10 mg PO TID [facility] Stop: 09/01/25 00:08 Last Admin: 08/02/25 14:16 Dose: 10 mg Enoxaparin Sodium (Enoxaparin Inj 40 Mg/0.4 Ml Syr) 40 mg SQ Q24H SUSANA Stop: 09/01/25 00:00 Last Admin: 08/02/25 00:52 Dose: 40 mg Fenofibrate (Fenofibrate Nanocrystallized 145 Mg Tablet) 145 mg PO QAM [facility] Stop: 09/01/25 08:59 Last Admin: 08/02/25 08:36 Dose: 145 mg Glucagon (Glucagon For Inj 1 Mg Vial) 1 mg SQ UD PRN; Protocol PRN Reason: Hypoglycemia Protocol Stop: 09/01/25 00:08 Glucose (Glucose 40% Gel 15 Gm Tube) 15 - 30 gm PO UD PRN; Protocol PRN Reason: Hypoglycemia Protocol Stop: 09/01/25 00:08 Glucose (Glucose 10 Tab/Tube) 4 - 8 tab PO UD PRN; Protocol PRN Reason: Hypoglycemia Protocol Stop: 09/01/25 00:08 Sodium Chloride (Nss) 1,000 mls @ 80 mls/hr IV .[id number] [facility] Stop: 08/05/25 00:08 Last Admin: 08/02/25 12:22 Dose: 80 mls/hr Insulin Aspart (Insulin Aspart Per Unit Charge) 0 units SC ACHS [facility] Stop: 09/01/25 07:29 Last Admin: 08/02/25 12:25 Dose: Not Given Loperamide HCl (Loperamide Hcl 2 Mg Cap) 2 mg PO Q4H PRN PRN Reason: loose stool Stop: 09/01/25 00:08 Lorazepam (Lorazepam 0.5 Mg Tab) 0.5 mg PO TID PRN PRN Reason: Anxiety Stop: 09/01/25 00:08 Last Admin: 08/02/25 10:33 Dose: 0.5 mg Losartan Potassium (Losartan Potassium 25 Mg Tab) 25 mg PO QAM [facility] Stop: 09/01/25 08:59 Last Admin: 08/02/25 08:36 Dose: 25 mg Miscellaneous (Remove Nicoderm Patch) 1 each N/A DAILY@0859 [facility] Stop: 09/01/25 08:58 Last Admin: 08/02/25 08:37 Dose: 1 each Miscellaneous (Carbohydrates For Hypoglycemia ) 15 - 30 gm PO UD PRN PRN Reason: Hypoglycemia Protocol Stop: 09/01/25 00:08 Nicotine (Nicotine 21 Mg/24 Hr Tdsy) 1 patch TD QAM [facility] Stop: 09/01/25 08:59 Last Admin: 08/02/25 08:37 Dose: 1 patch Nicotine Polacrilex (Nicotine Polacrilex 2 Mg Gum) 1 piece MT Q2H PRN PRN Reason: nicotine craving Stop: 09/01/25 00:08 Last Admin: 08/02/25 07:39 Dose: 1 piece Ondansetron HCl (Ondansetron Inj 2 Mg/Ml 2 Ml Vial) 4 mg IV Q6H PRN PRN Reason: Nausea Stop: 09/01/25 00:08 Last Admin: 08/02/25 03:18 Dose: 4 mg Pantoprazole Sodium (Pantoprazole 40 Mg Tab) 40 mg PO BID [facility] Stop: 09/01/25 00:08 Last Admin: 08/02/25 08:36 Dose: 40 mg Rosuvastatin Calcium (Rosuvastatin Calcium 20 Mg Tab) [facility] [place] Stop: 09/01/25 08:59 Last Admin: 08/02/25 08:36 Dose: 20 mg Simethicone (Simethicone 80 Mg Chew) 80 mg PO Q6H PRN PRN Reason: Flatulence Stop: 09/01/25 11:19 Sucralfate (Sucralfate 1 Gm/10 Ml Udc) 1 gm PO QID [facility] Stop: 09/01/25 12:59 Last Admin: 08/02/25 12:20 Dose: 1 gm (2) Abdominal pain Abdominal location: epigastric Qualified Code(s): R10.13 - Epigastric pain
[2025-08-03] MEDS: SIMETHICONE 80 MG CHEW PO PRN (06:31)
[2025-08-03 07:12] LABS: Hematocrit (blood only) 42.7 % (42.0-52.0); Hemoglobin 14.7 g/dL (14.0-18.0); Mean Corpuscular Hemoglobin 31.2 pg (25.0-34.0); Mean Corpuscular Volume 90.7 fL (80.0-100.0); Platelet Count 276 K/uL (130-400); RDW Standard Deviation 42.6 fL (36.4-46.3); Red Blood Count 4.71 M/uL (4.70-6.10); White Blood Count 8.15 K/ul (4.8-10.8)
[2025-08-03 07:32] LABS: Anion Gap 6.0 (3-11); Blood Urea Nitrogen 19.0 mg/dl (6-23); Calcium 8.9 mg/dl (8.6-10.3); Carbon Dioxide 23.0 mmol/L (21-32); Chloride 111.0 mmol/L (98-107); Creatinine Clr Calc Pharmacy 119.0 ml/min; Glucose 85.0 mg/dl (70-99(Fasting)); Magnesium 2.0 mg/dl (1.7-2.4); Potassium 4.3 mmol/L (3.5-5.1); Sodium 140.0 mmol/L (136-145)
[2025-08-03 07:38] LABS: INR 1.1 (0.9-1.1); Prothrombin Time 11.2 Seconds (9.0-12.0)
--- NOTE | 2025-08-03 08:50 | Gastroenterology Progress Note ---
Date of Service August 03, 2025 Assessment & Plan (1) Nausea: Plan: 49 year old male with history of anxiety, HTN, T2DM, dyslipidemia, IBS and others below admitted w/ abd pain, weight loss CTAP last admission w/o acute findings, US w/ potential GB sludge but no stones/biliary dilation or acute findings, LFTs/lipase non-elevated. Maintain NPO status for EGD evaluation today. Please refer to previous note for additional recommendations/plans. We appreciate assistance in the management of any serological abnormality and corrections to include: hemoglobin >7, INR <2, platelets >50,000, potassium levels >3.5 but <5.3, and sodium levels within 5 points of the reference range prior to endoscopic evaluation. (2) RUQ pain: Admission and Anticipated Discharge Date Admission Date: August 02, 2025 Subjective Pt was seen and evaluated, chart reviewed. Remains NPO for EGD. Denies any nausea/vomiting this AM. Review of Systems Review of Systems: All other findings negative except as noted in HPI. Physical Exam Constitutional: WD/WN, vitals as above Respiratory: normal respiratory effort, lungs clear to auscultation Cardiovascular: Rate/Rhythm: regular rate Gastrointestinal (Abdomen): normal bowel sounds, soft, nontender, no hepatosplenomegaly Skin: no rashes, warm and dry Results & Data Results & Data Vital Signs (Past 12 Hours) Vital Signs Temp Pulse Pulse Resp BP BP Pulse Ox 08/03/25 08:19 97.4 F L 70 18 115/74 96 08/03/25 05:33 62 08/03/25 04:38 98.1 F 60 20 101/66 97 08/03/25 01:21 67 08/03/25 00:18 97.3 F L 66 20 116/75 96 08/03/25 00:09 O2 Del Method O2 Del Method 08/03/25 08:19 Room Air 08/03/25 05:33 08/03/25 04:38 Room Air 08/03/25 01:21 08/03/25 00:18 Room Air 08/03/25 00:09 Room Air Laboratory Results 08/03/25 08/03/25 08/02/25 Range/Units 07:58 06:25 20:30 WBC 8.15 (4.8-10.8) K/ul RBC 4.71 (4.70-6.10) M/uL Hgb 14.7 (14.0-18.0) g/dL Hct 42.7 (42.0-52.0) % MCV 90.7 (80.0-100.0) fL MCH 31.2 (25.0-34.0) pg MCHC 34.4 (32.0-36.0) g/dL RDW Std Deviation 42.6 (36.4-46.3) fL RDW Coeff of Peyman 12.7 (11.5-14.5) % Plt Count 276 (130-400) K/uL MPV 11.7 (9.4-12.4) fL PT 11.2 (9.0-12.0) Seconds INR 1.1 (0.9-1.1) Sodium 140 (136-145) mmol/L Potassium 4.3 (3.5-5.1) mmol/L Chloride 111 H (98-107) mmol/L Carbon Dioxide 23 (21-32) mmol/L Anion Gap 6 (3-11) BUN 19 (6-23) mg/dl Creatinine 0.85 (0.6-1.4) mg/dl Est Cr Clr Drug Dosing 119.0 ml/min eGFR 105.86 BUN/Creatinine Ratio 22.4 H (10-20) Glucose 85 (70-99(Fasting)) mg/dl POC Glucose 100 H 91 (70-99) mg/dl Calcium 8.9 (8.6-10.3) mg/dl Phosphorus 2.9 (2.5-4.9) mg/dl Magnesium 2.0 (1.7-2.4) mg/dl 08/02/25 08/02/25 Range/Units 16:58 12:08 WBC (4.8-10.8) K/ul RBC (4.70-6.10) M/uL Hgb (14.0-18.0) g/dL Hct (42.0-52.0) % MCV (80.0-100.0) fL MCH (25.0-34.0) pg MCHC (32.0-36.0) g/dL RDW Std Deviation (36.4-46.3) fL RDW Coeff of Peyman (11.5-14.5) % Plt Count (130-400) K/uL MPV (9.4-12.4) fL PT (9.0-12.0) Seconds INR (0.9-1.1) Sodium (136-145) mmol/L Potassium (3.5-5.1) mmol/L Chloride (98-107) mmol/L Carbon Dioxide (21-32) mmol/L Anion Gap (3-11) BUN (6-23) mg/dl Creatinine (0.6-1.4) mg/dl Est Cr Clr Drug Dosing ml/min eGFR BUN/Creatinine Ratio (10-20) Glucose (70-99(Fasting)) mg/dl POC Glucose 93 95 (70-99) mg/dl Calcium (8.6-10.3) mg/dl Phosphorus (2.5-4.9) mg/dl Magnesium (1.7-2.4) mg/dl PG Care Time/CCT Total # of Minutes Spent Total Time Spent with Patient: Total time spent is greater than 50% in coordination of care (as documented) at patient's floor/unit and/or counseling patient: Coding Level of Care Code 29451 SUB INP/OBS CARE 2/35MIN Diagnoses Nausea R11.0 RUQ pain R10.11
[2025-08-03 12:35] VITALS: TEMP 98.1
--- NOTE | 2025-08-03 12:49 | Anesthesiology Consultation ---
Date of Service August 03, 2025 Assessment & Plan Chart Review Chart Review: Acceptable Risk for Surgery Consults Requested none ASA ASA2 Proposed Anesthesia Anesthesia Type: MAC Risk / Benefits Reviewed With: PT / POA / Parent / Guardian, Accepts Plan and Informed Consent Obtained History Surgery Operation Date: 08/03/25 16:30 Proposed Procedures p Esophagogastroduodenoscopy Dr. Beltre - James Beltre MD Height/Weight Height: 5 ft 9 in Weight: 96.2 kg Allergies Allergy/AdvReac Type Severity Reaction Status Date / Time No Known Allergies Allergy Verified 08/01/25 21:34 Medications Home Medications Medication Instructions Recorded Confirmed Last Taken fenofibrate micronized 200 mg 200 mg PO QAM 07/22/25 08/01/25 08/01/25 capsule irbesartan 75 mg tablet 75 mg PO QAM 07/22/25 08/01/25 08/01/25 lorazepam 0.5 mg tablet 0.5 mg PO TID PRN Anxiety 07/22/25 08/01/25 07/22/25 metformin 500 mg tablet,extended 1,000 mg PO QAM 07/22/25 08/01/25 08/01/25 release 24 hr rosuvastatin 20 mg tablet 20 mg PO QAM 07/22/25 08/01/25 08/01/25 sucralfate 1 gram tablet 1 g PO ACHS 07/22/25 08/01/25 08/01/25 08:00 loperamide 2 mg capsule 2 mg PO Q4H PRN loose stool #20 07/23/25 08/01/25 Unknown caps pantoprazole 40 mg tablet,delayed 40 mg PO BID #60 tabs 07/23/25 08/01/25 08/01/25 08:00 release citalopram 10 mg tablet 10 mg PO DAILY 08/01/25 08/01/25 Unknown Active Medications Generic Name Dose Route Start Last Admin Trade Name Freq PRN Reason Stop Dose Admin Al Hydrox/Mg Hydrox/Simethicone 15 ml 08/02/25 00:09 08/02/25 07:39 Aluminum/Magnesium Susp 30 Ml Udc PO 09/01/25 00:08 15 ml Q4H PRN Administration Dyspepsia Dicyclomine HCl 10 mg 08/02/25 00:09 08/03/25 08:10 Dicyclomine Hcl 10 Mg Cap PO 09/01/25 00:08 10 mg TID SUSANA Administration Fenofibrate 145 mg 08/02/25 09:00 08/03/25 08:10 Fenofibrate Nanocrystallized 145 Mg Tablet PO 09/01/25 08:59 145 mg QAM SUSANA Administration Sodium Chloride 1,000 mls @ 80 mls/hr 08/02/25 00:09 08/03/25 01:25 Nss IV 08/05/25 00:08 80 mls/hr .[id number] SUSANA Administration Insulin Aspart 0 units 08/02/25 07:30 08/03/25 08:15 Insulin Aspart Per Unit Charge SC 09/01/25 07:29 Not Given ACHS SUSANA Lorazepam 0.5 mg 08/02/25 00:09 08/02/25 10:33 Lorazepam 0.5 Mg Tab PO 09/01/25 00:08 0.5 mg TID PRN Administration Anxiety Losartan Potassium 25 mg 08/02/25 09:00 08/02/25 08:36 Losartan Potassium 25 Mg Tab PO 09/01/25 08:59 25 mg QAM SUSANA Administration Miscellaneous 1 each 08/02/25 08:59 08/03/25 08:10 Remove Nicoderm Patch N/A 09/01/25 08:58 1 each DAILY@0859 SUSANA Administration Nicotine 1 patch 08/02/25 09:00 08/03/25 08:10 Nicotine 21 Mg/24 Hr Tdsy TD 09/01/25 08:59 1 patch QAM SUSANA Administration Nicotine Polacrilex 1 piece 08/02/25 00:09 08/02/25 07:39 Nicotine Polacrilex 2 Mg Gum MT 09/01/25 00:08 1 piece Q2H PRN Administration nicotine craving Ondansetron HCl 4 mg 08/02/25 00:09 08/02/25 03:18 Ondansetron Inj 2 Mg/Ml 2 Ml Vial IV 09/01/25 00:08 4 mg Q6H PRN Administration Nausea Pantoprazole Sodium 40 mg 08/02/25 00:09 08/03/25 08:10 Pantoprazole 40 Mg Tab PO 09/01/25 00:08 40 mg BID SUSANA Administration Rosuvastatin Calcium 20 mg 08/02/25 09:00 08/03/25 08:10 Rosuvastatin Calcium 20 Mg Tab PO 09/01/25 08:59 20 mg QAM SUSANA Administration Simethicone 80 mg 08/02/25 11:20 08/03/25 06:31 Simethicone 80 Mg Chew PO 09/01/25 11:19 80 mg Q6H PRN Administration Flatulence Sucralfate 1 gm 08/02/25 13:00 08/02/25 12:20 Sucralfate 1 Gm/10 Ml Udc PO 09/01/25 12:59 1 gm QID SUSANA Administration NPO Date Last Intake of Fluids: 08/03/25 Time Last Intake of Fluids: 08:00 Date Last Intake of Solids: 08/02/25 Time Last Intake of Solids: 19:00 Past Medical History Medical History (Updated 08/03/25 @ 12:59 by Dionna Valdez DO) Fatty liver Hypertension Diabetes mellitus type 2, controlled Dyslipidemia Anxiety Tobacco use disorder RUQ pain Irritable bowel syndrome with diarrhea Generalized anxiety disorder Exercise / Class Metabolic Activity II 4-5 Yardwork/Stairs/Walk up hill Past Surgical History Surgical History (Updated 08/03/25 @ 12:59 by Dionna Valdez DO) Hx of wisdom tooth extraction History of strabismus surgery Past Anesthesia History No Hx of Anesthesia Complications and No Family Hx of Anesthesia Complications History of PONV No Hx of PONV and No Hx of Motion Sickness Social History Smoking Status: Current every day smoker Smoking cigarettes per day: 1 Pack per day Do You Dip or Chew Tobacco: No Hx Alcohol Use: No Hx Substance Use: No substance use type: does not use Physical Exam Vital Signs Last Vital Signs Temp 36.7 C 08/03/25 12:32 Pulse 67 08/03/25 12:32 Resp 16 08/03/25 12:32 BP 139/93 08/03/25 12:32 Pulse Ox 98 08/03/25 12:32 O2 Del Method Room Air 08/03/25 12:32 Constitutional + obese ENMT Mouth: no TMJ abnormality Thyromental Distance: > or= 3.5 Finger Breadths Mallampati Class: II Neck normal visual inspection, trachea midline and + facial hair; neck extension not limited Respiratory normal respiratory effort Auscultation: lungs clear to auscultation bilaterally Cardiovascular Rate/Rhythm: regular rate and regular rhythm Heart Sounds: no murmur Musculoskeletal Spine: normal cervical ROM Extremities: full ROM of extremities Neurologic moves all extremities Psychiatric Orientation: alert and oriented x 3 Testing Laboratory Results 08/03/25 06:25 08/03/25 06:25 PT 11.2 Seconds (9.0-12.0) 08/03/25 06:25 INR 1.1 (0.9-1.1) 08/03/25 06:25 Urine Color Yellow 08/01/25 Unknown Urine Appearance Clear (Clear) 08/01/25 Unknown Urine pH 6.0 (4.5-7.5) 08/01/25 Unknown Ur Specific [place] 1.017 (1.000-1.030) 08/01/25 Unknown Urine Protein Negative (Negative) 08/01/25 Unknown Urine Glucose (UA) Negative (Negative) 08/01/25 Unknown Urine Ketones Negative (Negative) 08/01/25 Unknown Urine Nitrite Negative (Negative) 08/01/25 Unknown Ur Leukocyte Esterase Negative (Negative) 08/01/25 Unknown 08/03/25 08/03/25 11:53 07:58 POC Glucose 98 100 H Electrocardiogram Date: 08/02/25 Vent. Rate : 66 BPM Atrial Rate : 66 BPM P-R Int : 158 ms QRS Dur : 88 ms QT Int : 424 ms P-R-T Axes : 30 91 50 degrees QTcB Int : 444 ms Normal sinus rhythm Possible Right ventricular hypertrophy Incomplete right bundle branch block Abnormal ECG Chest X-Ray Date: 08/01/25 Findings: + NAD
--- NOTE | 2025-08-03 14:19 | GI REPORT ---
[facility] Patient: ECTOR LI : 1975 Sex at : Male Age: 49 Years Procedure: Upper GI endoscopy Date: 08/03/2025 Attending Physician: James Beltre MD Referring MD: Referred Self Indications: - Epigastric abdominal pain - Dyspepsia Medications: - See the Anesthesia note for documentation of the administered medications Complications: - No immediate complications. Estimated Blood Loss: - Estimated blood loss was minimal. Procedure: - Prior to the procedure, a History and Physical was performed, and patient medications and allergies were reviewed. The patient's tolerance of previous anesthesia was also reviewed. The risks and benefits of the procedure and the sedation options and risks were discussed with the patient. All questions were answered, and informed consent was obtained. Prior Anticoagulants: The patient has taken no anticoagulant or antiplatelet agents. ASA Grade Assessment: II - A patient with mild systemic disease. After reviewing the risks and benefits, the patient was deemed in satisfactory condition to undergo the procedure. - The egd scope was introduced through the mouth and advanced to the third part of the duodenum. - The upper GI endoscopy was accomplished without difficulty. - The patient tolerated the procedure well. Findings: - The examined duodenum was normal. Biopsies for histology were taken with a cold forceps for evaluation of celiac disease. - Diffuse mildly erythematous mucosa without bleeding was found in the entire examined stomach. This was biopsied with a cold forceps for histology. - The Z-line was irregular and was found 41 to 43 cm from the incisors. This was biopsied with a cold forceps for evaluation to rule out Montes De Oca's Esophagus. - Mucosal changes including ringed esophagus and longitudinal furrows were found in the entire esophagus. Esophageal findings were graded using the Eosinophilic Esophagitis Endoscopic Reference Score (EoE-EREFS) as: Edema Grade 0 Normal (distinct vascular markings), Rings Grade 1 Mild (subtle circumferential ridges seen on esophageal distension), Exudates Grade 0 None (no white lesions seen) and Furrows Grade 1 Mild (vertical lines without visible depth). Multiple biopsies were obtained in the middle third of the esophagus with cold forceps for evaluation of eosinophilic esophagitis. - The cardia and gastric fundus were normal on retroflexion. Impression: - Normal examined duodenum. Biopsied. - Erythematous mucosa in the stomach. Biopsied. - Z-line irregular, 41 to 43 cm from the incisors. Biopsied. - Esophageal mucosal changes suggestive of eosinophilic esophagitis. - Multiple biopsies were obtained in the middle third of the esophagus. Recommendation: - Await pathology results. - Follow an antireflux regimen. - Advance diet as tolerated. - Follow-up with regular parts delivery driver as outpatient. - Continue proton pump inhibitor therapy. - Patient is encouraged to use probiotic daily. He may benefit from therapy directed for dyspepsia including possible FDgard or low-dose amitriptyline. - The patient is stable for hospital discharge from a GI perspective. Procedure Code(s): - 77858, Esophagogastroduodenoscopy, flexible, transoral; with biopsy, single or multiple Diagnosis Code(s): - R10.13, Epigastric pain - K31.89, Other diseases of stomach and duodenum - K22.89, Other specified disease of esophagus CPT(R) - 2023 copyright [employer]. All Rights Reserved. The CPT codes, CCI edits and ICD codes generated are intended as suggestions and were generated based on input data. These codes are preliminary and upon computer language coder review may be revised to meet current compliance and payer requirements. The provider is responsible for the final determination of appropriate codes, and modifiers. James Beltre MD This document has been electronically signed. Note Initiated:08/03/2025 Note Completed:08/03/2025 2:19 PM \\[email or web address]\Provation\Results\LIVE\[id number]
[2025-08-03 14:33] VITALS: O2SAT 99
[2025-08-03 14:44] VITALS: PULSE 62; RESP 16
[2025-08-03] MEDS: LIDOCAINE 2% 2 ML VIAL/AMP(20MG/ML) INFIL ONE (15:29)
[2025-08-03] MEDS: PROPOFOL IV EMULSION 10 MG/ML 20 ML VIAL IV ONE ×2 (15:29)
--- NOTE | 2025-08-03 15:40 | Discharge Summary ---
Discharge Summary Date of Service August 03, 2025 Principal Dx & Hospital Course #1 = Principal Diagnosis (1) Tremor due to orthostatic hypotension: (2) Abdominal pain: (3) Generalized anxiety disorder: (4) Diabetes mellitus type 2, controlled: (5) Hypertension: (6) Tobacco use disorder: Plan 49 year old male with PMH significant for type 2 diabetes, hypertension, hyperlipidemia, fatty liver, tobacco use disorder, anxiety who presented to the ED on 08/01/2025 with an episode of tremoring with head and neck pain and ongoing chronic abdominal pain. Tremor due to orthostatic hypotension Had an episode of head and neck pain with full body tremoring after getting up quickly from the couch - denies any dizziness, lightheadedness, chest pain, SOB prior to getting up Likely due to orthostasis given quick change in position Labs, UA, tox screen grossly unremarkable Head CT and MRI negative EEG completed and pending read still Orthostatics negative No recurrence of symptoms Chronic abdominal pain Reports chronic and constant abdominal pain described as "ickiness" with occasional burning sensation since June Previously admitted from 07/22-07/23 with negative CTAP, gallbladder US with small amount of sludge (normal LFTs, lipase), negative stool studies-> advised outpatient EGD scheduled for 08/29 s/p EGD on 08/03 which revealed erythematous mucosa in stomach (biopsied), z- line irregular (biopsied), changes suggestive of eosinophilic esophagitis GI recommendations: -Continue PPI, carafate for antireflux -Encouraged daily probiotic (Florastor) and FDgard for dyspepsia -Could consider low dose amitriptyline for functional dyspepsia -Follow up with PCP and GI -> [facility] Hypertension BP low normal during admission Hold losartan until PCP follow up Advised patient to monitor BPs Encouraged slow changes in position and adequate hydration Hyperlipidemia Continue fenofibrate and rosuvastatin Type 2 diabetes Continue metformin Anxiety Exacerbated by chronic abdominal pain Continue ativan PRN Stopped taking celexa after one dose Tobacco use disorder Counseled cessation Patient seen in collaboration with Dr. Wetzel. Please see addendum. Notes For Next Care Provider 49 year old male with significant PMH who was admitted at [facility] from 08/01- 08/03/2025 with abdominal pain. Underwent EGD concerning for eosinophilic esophagitis. GI recs as above. Follow up with PCP and GI outpatient. Medication Changes From Visit Hold losartan until PCP follow up Start Florastor and FDgard for dyspepsia Bentyl for spasms Admission HPI Per Admitting Provider Patient is a 49-year-old gentleman with known diabetes, dyslipidemia and now chronic abdominal pain. Recent hospitalization for this abdominal pain and has outpatient EGD scheduled. Presents to the emergency room today after this evening when he got up off of laying on the couch had some head pain, dizziness, altered mental status, difficulty speaking and difficulty walking to the car to come to the emergency room. In the emergency room all this is cleared. Evaluation the emergency room is unremarkable for acute findings but due to his symptoms he was referred to our service for further evaluation. Time my evaluation patient seems to be back to his baseline. He states since his discharge from the hospital he still has not had any relief of his abdominal pain. He states he is not sleeping well. He states he is not eating well. He has had at least a 5 to 7 pound weight loss since the beginning of the month. He has lost 2 kg since his discharge on 07/23/2025. He has had no fever or chills. No cough or cold symptoms. He is struggling with a lot of anxiety b ecause he does not have a diagnosis for his abdominal pain. He has struggled with intermittent anxiety periods in the past. He takes Ativan for this. However usually these are only been short-lived periods of time. He was just seen by his PCP this past Friday. Diagnosed with adjustment disorder with anxiety and was trial of Celexa. He took 1 dose and had some side effects which he attributed to the Celexa including worsening abdominal pain and headache and it did not take anymore since then. His states that he has had diarrhea for many many years. She states that is not unusual or for him to have 6 or 7 loose stools a day. He does take Imodium on a regular basis. Has never seen any blood in the diarrhea. She states actually his stools have slowed in frequency over the last couple weeks mostly due to the fact that he has eaten a lot less. Today's episode he states that he just was not feeling well with his abdominal pain came home and laid on the couch with a heating pad. His came home from work and was getting ready to make dinner so he quickly got up to take his Carafate. As he got up he got headache, lightheaded, blurred vision, bilateral arm numbness and facial numbness and he was able to quickly sit down. As he sat down he seemed to have some tremoring throughout his body witnessed by his . She checked his blood pressure and it was not low systolic in the 140s. When he was having this tremor he did not have the ability to speak much. He did not bite his tongue. He did not lose continence. She convinced him to go to the emergency room and she stated that it was difficult to get him to the car he was stumbling and walking like he was "drunk.". He does not use any alcohol. No illicit drug use. He does smoke significantly. Discharge Exam General/Psych: WD/WN, sitting up in bed, NAD, conversing easily Head: normocephalic, atraumatic Eyes: normal inspection, PERRL, conjunctivae pink ENT: external ear and nose normal, oropharynx normal Neck: normal visual inspection, trachea midline Respiratory: normal respiratory effort, lungs clear to auscultation, no wheeze/rales/rhonchi, no accessory muscle use Cardiovascular: regular rate and rhythm, no murmur/rub/gallop Extremities: no cyanosis or clubbing, normal peripheral pulses, no BLE edema Abdomen/GI: normal bowel sounds, soft, tender on palpation Neurologic/MSK: A+Ox3, motor strength 5/5, moves all extremities Skin: no rashes, normal color, warm and dry Updated Medication List Medication Instructions Recorded Confirmed Type fenofibrate micronized 200 mg 200 mg PO QAM 07/22/25 08/01/25 History capsule irbesartan 75 mg tablet 75 mg PO QAM 07/22/25 08/01/25 History lorazepam 0.5 mg tablet 0.5 mg PO TID PRN Anxiety 07/22/25 08/01/25 History metformin 500 mg tablet,extended 1,000 mg PO QAM 07/22/25 08/01/25 History release 24 hr rosuvastatin 20 mg tablet 20 mg PO QAM 07/22/25 08/01/25 History sucralfate 1 gram tablet 1 g PO ACHS 07/22/25 08/01/25 History loperamide 2 mg capsule 2 mg PO Q4H PRN loose stool #20 07/23/25 08/01/25 Rx caps pantoprazole 40 mg tablet,delayed 40 mg PO BID #60 tabs 07/23/25 08/01/25 Rx release dicyclomine 10 mg capsule 10 mg PO TID PRN Spasms #90 caps 08/03/25 Rx Hospital Stay Data Consultations 08/01/25 21:13 ED Decision to Admit Stat 08/02/25 00:09 Consult Gastroenterology Routine Procedures Performed Operation Date: 08/03/25 16:30 Actual Procedures p EGD Biopsy Cytology - James Beltre MD Diagnostic Imagining Performed Chest X-Ray 08/01/25 19:19 Exam(s): XR CXR 1 VIEW EXAM: XR Chest, 1 View CLINICAL HISTORY: Reason for exam: Chest pain, nonspecific. TECHNIQUE: Frontal view of the chest. COMPARISON: None. FINDINGS: Lungs/Pleural space: Clear. No focal infiltrate, pleural effusion or pneumothorax. Heart: No cardiomegaly. Mediastinum: Unremarkable. Bones/Soft Tissues: No acute abnormality. IMPRESSION: 1. No acute process in the chest. Electronically signed by: Karen Nair M.D. 08/01/25 21:[address] 08/01/25 19:49 Exam(s): CT HEAD Without Contrast EXAM: CT Head Without Intravenous Contrast CLINICAL HISTORY: Reason for exam: confusion, shaking episode. TECHNIQUE: Axial computed tomography images of the head/brain without intravenous contrast. CTDI is 35 mGy and DLP is 546 mGy-cm. Automated exposure control was utilized for the study. A dose lowering technique was utilized adhering to the principles of ALARA. COMPARISON: None. FINDINGS: Brain: No mass, edema, mass effect or acute infarct. No acute hemorrhage. No abnormal density in the brain parenchyma. No Chiari malformation. No sellar or suprasellar mass. Ventricles: No hydrocephalus or midline shift. Bones/joints: No skull fracture. Soft tissues: No scalp hematoma. Visualized Sinuses: Clear. Mastoid air cells: No mastoid effusion. IMPRESSION: 1. No acute intracranial abnormality. Electronically signed by: Karen Nair M.D. 08/01/25 21:16 PM Brain MRI 08/01/25 22:13 EXAM: MR brain wo/w con CLINICAL HISTORY: Mental status change TECHNIQUE: MRI of the brain was performed with and without intravenous contrast administration (9.5 ml Gadavist). Sequences obtained include pre-contrast and post-contrast T1-weighted, T2-weighted, FLAIR (Fluid-Attenuated Inversion Recovery), DWI (Diffusion-Weighted Imaging), and ADC (Apparent Diffusion Coefficient) sequences. COMPARISON: No previous studies are available for comparison. FINDINGS: Brain Parenchyma: No evidence of acute infarction or hemorrhage. Bertrand-white matter differentiation is preserved. No abnormal signal intensity lesions identified. Post-Contrast Findings: No abnormal enhancement of the brain parenchyma or meninges. Ventricles and Sulci: Ventricular system is within normal limits without evidence of hydrocephalus. Sulci and cisternal spaces are age-appropriate. Brainstem and Cerebellum: Normal appearance of the brainstem and cerebellum without focal lesions or abnormal enhancement. Vessels: Intracranial vessels appear normal without evidence of vascular malformations or aneurysms. Skull and Calvarium: No evidence of skull vault lesions or abnormal marrow signal within the calvarium. Bilateral maxillary and sphenoid sinuses retention cysts. Leftward deviation of nasal septum. Alma Delia bullosa of the right middle nasal turbinate. Hypertrophied right inferior nasal turbinate. IMPRESSION: 1. Normal brain parenchyma and structures. 2. No evidence of acute intracranial pathology or abnormal contrast enhancement. 3. Bilateral maxillary and sphenoid sinuses retention cysts. 4. Leftward deviation of nasal septum. Alma Delia bullosa of the right middle nasal turbinate. Hypertrophied right inferior nasal turbinate. Electronically signed by Ruben Goldstein 08-02-2025 01:23 AM Orbit X-Ray 08/01/25 22:23 Exam(s): XR ORBITS EXAM: XR Orbits, 4 or More Views CLINICAL HISTORY: Reason for exam: Screening for foreign body for MRI. TECHNIQUE: Frontal, lateral and oblique views of the orbits. COMPARISON: No relevant prior studies available. FINDINGS: Bones/joints: Unremarkable. No acute fracture. Sinuses: Unremarkable. No air-fluid levels. Soft tissues: Unremarkable. No radiopaque foreign body. IMPRESSION: No radiopaque foreign body overlying the orbits. Electronically signed by: Karen Nair M.D. 08/01/25 23:34 PM Pending Results Patient Have Any Pending Studies at Discharge: Yes Discharge Instructions Given to Patient (Per Discharging Provider) You presented to the hospital with worsening abdominal pain. You were evaluated by GI who recommended an inpatient EGD. Your EGD showed inflammation in the esophagus and stomach. Tissue samples were collected and will take a few days to result. In the meantime, you should continue your protonix and carafate medications. Dr. Beltre recommends FDgard and Florastor to help with indigestion. You may also consider asking your PCP for low dose amitriptyline. You should slowly advance your diet as tolerated and avoid irritating foods such as spicy, citrus, greasy/fried. Please follow up with your PCP as scheduled on 08/17/2025. Please follow up with GI - [facility] will call you. We recommend holding your blood pressure medication and monitoring your blood pressure at home until your PCP follow up appointment. Please also change positions slowly to avoid recurrence of the tremoring episode you had two days ago. Total Time Total Time Spent Total Time Spent (In Minutes): I spent a total of 35 minutes coordinating, documenting and providing care for this patient excluding time spent in the performance of separately billed services or time spent by another provider/QHP. Supervising Physician Co-Signing Physician Notes Pt seen and examined by me, care coordinated w/ M. HUMAIRA Alford, pls refer to her note above fur further detail. Pt is a 49 year old male with type 2 diabetes, hypertension, hyperlipidemia, fatty liver, tobacco use disorder, anxiety who presented with an episode of tremoring with head and neck pain and ongoing chronic abdominal pain. EEG and brain MRI ordered to evaluate episode of tremors and AMS. Brain MRI negat. EEG results pending. Pt's mental status back to baseline. Pt was also evaluated by GI - and pt underwent EGD - c/w esophagitis, gastritis , biopsies obtained and results pending. It was recommended to cont. taking PPI, and probiotics daily. He may also benefit from FDguard or low dose amitriptyline. Currently pt is lying in bed in NAD. He is awake, alert, oriented and answers appropriately. Abdomen is soft, mildly tender in epigastric area as well as lower abd. Lungs CTAB, heart sounds regular. There is no LE edema and pt is moving extremities. Discussed results of EGD with the pt and his at the bedside, they are aware of recommendations and close follow up w/ PCP and GI. MD Damari
--- NOTE | 2025-08-03 15:47 | Anesthesiology Progress Note ---
Date of Service August 03, 2025 Anesthesia Post Procedure Vital Signs Vital Signs: Temp Pulse Pulse Resp BP BP Pulse Ox 08/03/25 14:41 62 16 109/82 99 08/03/25 14:29 72 15 97/70 L 99 08/03/25 14:14 87 12 124/72 98 08/03/25 12:32 36.7 C 67 16 139/93 98 08/03/25 11:15 36.5 C 64 18 131/82 97 08/03/25 08:19 36.3 C L 70 18 115/74 96 08/03/25 05:33 62 08/03/25 04:38 36.7 C 60 20 101/66 97 08/03/25 01:21 67 08/03/25 00:18 36.3 C L 66 20 116/75 96 08/03/25 00:09 08/02/25 20:08 37.0 C 68 20 143/79 H 96 O2 Del Method O2 Del Method 08/03/25 14:41 Room Air 08/03/25 14:29 Room Air 08/03/25 14:14 Room Air 08/03/25 12:32 Room Air 08/03/25 11:15 Room Air 08/03/25 08:19 Room Air 08/03/25 05:33 08/03/25 04:38 Room Air 08/03/25 01:21 08/03/25 00:18 Room Air 08/03/25 00:09 Room Air 08/02/25 20:08 Room Air Pain Intensity Lower Abdomen: Pain Intensity: 4 Transfer of Care Handoff Completed per policy Notes Mental Status: alert / awake / arousable Patient Amnestic to Procedure: Yes Nausea / Vomiting: adequately controlled Pain: adequately controlled Airway Patency, RR, SpO2: stable & adequate BP & HR: stable & adequate Hydration State: stable & adequate Anesthetic Complications: no major complications apparent and Pt Satisfied with anesthetic care
[2025-08-03 16:12] VITALS: BP 101/66
== END 2025-08-03 16:35 | disposition home or self-care (01) | DRG 312 ==
LOC: 2N 19:05 → ED 19:05 → 2N 22:59